=== PATIENT | male | born 2000 | race Caucasian/White ===

== ENCOUNTER 2022-08-06 10:44 | Inpatient (IN) ==
[2022-08-06] MEDS ORDERED: SODIUM CHLORIDE 0.9% 1000ML 1,000 ML IV ONE (11:16)
[2022-08-06] MEDS ORDERED: KETOROLAC TROMETHAMINE 15 MG/ML VIAL IV ONE ×2 (11:16→16:03)
--- NOTE | 2022-08-06 11:19 | Emergency Department Note ---
Impression & Plan Abdominal pain, Pancreatitis, Vomiting ED Provider Note NAME: IRMA MORGAN AGE: 21 SEX: M : 2000 ARRIVES VIA: Walk-In INFORMANT: Patient ED PROVIDER(S): Alec Gardner DO CHIEF COMPLAINT: RUQ abdominal pain HPI: Patient is a 21-year-old male who presents ER for right upper quadrant abdominal pain. This has been present over the past 2 months. Generally worse after eating. Over the past 2 weeks it has significantly worsened. He was seen here and evaluated and had a CT performed last week which was unremarkable. He denies any headache or change in vision. No chest pain but admits to pain in his right upper quadrant/right lower chest with breathing. Has some nausea but no vomiting. No dysuria, urgency, or frequency. No other exacerbating or remitting factors. He was seen and evaluated by [facility] and referred in today. Pain is sharp stabbing constant and currently 7 out of 10. ROS: See above HPI for pertinent positives & negatives. A total of 10 systems reviewed and were otherwise negative. PAST MEDICAL HISTORY:See Below PAST SURGICAL HISTORY:See Below FAMILY HISTORY:See Below SOCIAL HISTORY:See Below HOME MEDICATIONS:See Below ALLERGIES:See Below VITALS:See Below PHYSICAL EXAMINATION: GENERAL: Sitting up in bed, alert, well appearing, well nourished, no distress, non-toxic EYE EXAM: normal conjunctiva. OROPHARYNX: no exudate, no erythema, lips, buccal mucosa, and tongue normal and mucous membranes are moist NECK: supple, no nuchal rigidity, no adenopathy, non-tender LUNGS: Clear to auscultation. Normal chest wall mechanics HEART: no murmurs, S1 normal and S2 normal ABDOMEN: abdomen soft, TTP in RUQ, normo-active bowel sounds, no masses, no rebound or guarding. BACK: Back is symmetrical on inspection and there is no deformity, no midline tenderness, no CVA tenderness. SKIN: no rashes and no bruising UPPER EXTREMITIES: upper extremities are grossly normal. LOWER EXTREMITIES: No pitting edema. NEURO EXAM: Normal sensorium, cranial nerves II-XII grossly intact, normal speech, no gross weakness of arms, no gross weakness of legs. MEDICAL DECISION MAKING: Patient is a 21-year-old male who presents ER for abdominal pain. IV was established blood work is obtained. Labs show no significant leukocytosis or anemia. D-dimer was negative. BMP along with LFTs bilirubin and lipase was remarkable for T bili of 3.6 and a lipase of 450. UA was clean. Ultrasound showed an unremarkable gallbladder. Patient was given IV fluids, Toradol and morphine. Updated bedside. Discussed with the hospitalist Dr. Colunga for further evaluation. Chest x-ray was clean. Triage Nursing notes reviewed. Limited review of prior medical records performed Vital Signs: reviewed and remarkable for tachy Differential diagnosis: Differential diagnoses includes but is not limited to gastritis, peptic ulcer disease, GERD, gallbladder disease, pancreatitis, small bowel obstruction, acute coronary syndrome, pericarditis, ischemic bowel, irritable bowel disease, irritable bowel syndrome, appendicitis, diverticulitis, malignancy, hernia, urinary tract infection, torsion, perforation, trauma, infectious. ER treatment provided: See below Diagnostics interpreted by me: ECG: Sinus rhythm rate 83 Left axis Intermittent PVCs QTC 458 Cardiac Monitoring: An order was placed for continuous cardiac monitoring. The monitor shows a rate of 75 with sinus rhythm. Laboratory studies: As stated above and show below. Imaging studies: Ultrasound as described above Consultation(s): Discussed with Dr. Davide burns for further evaluation Procedures: none Critical Care: None Past Med/Surg History Medical History No pertinent past medical history Social History Smoking Status: Never smoker Tobacco Type: E-cigarettes / Vaping Preferred Language: Macedonian Feels Safe at Home: Yes Allergies Allergies Allergy/AdvReac Type Severity Reaction Status Date / Time No Known Allergies Allergy Verified 08/06/22 14:30 Home Meds Home Medications Medication Instructions Recorded Confirmed [id number] 6.25 2 cap PO DIRECTED PRN COLD 08/04/22 08/06/22 mg-15 mg-325 mg capsule (Vicks SYMPTOMS/SLEEP NyQuil Cold/Flu Liquicap) calcium carbonate 1,000 1 tab PO TID 08/06/22 08/06/22 mg-magnesium hydroxide 200 mg chewable tablet (Rolaids Antacid Ultra Strength) Results & Data (ED) Vital Signs Vital Signs - 24 hr 08/06/22 11:04 08/06/22 11:34 08/06/22 11:35 Temperature 36.8 C Temperature Source Temporal Artery Scan Oral Pulse Rate 102 H Pulse Rate [Right Finger] Respiratory Rate 18 Blood Pressure 135/87 Blood Pressure [Right Arm] Blood Pressure Mean 103 Blood Pressure Mean [Right Arm] Pulse Oximetry 100 Oxygen Delivery Method Room Air Room Air Sepsis Recent Fever Within 48 Hours No Sepsis New/Unexplained Change in Mental Status No Sepsis Action Taken by Nursing No Action Required 08/06/22 13:29 Temperature Temperature Source Pulse Rate Pulse Rate [Right Finger] 71 Respiratory Rate 16 Blood Pressure Blood Pressure [Right Arm] 123/68 Blood Pressure Mean Blood Pressure Mean [Right Arm] 86 Pulse Oximetry 98 Oxygen Delivery Method Room Air Sepsis Recent Fever Within 48 Hours Sepsis New/Unexplained Change in Mental Status Sepsis Action Taken by Nursing Laboratory Data Result diagrams: 08/06/22 11:20 08/06/22 11:20 Lab Results 08/06/22 08/06/22 08/06/22 Range/Units 11:15 11:20 11:20 WBC 5.60 (4.8-10.8) K/ul RBC 5.71 (4.63-6.08) M/uL Hgb 16.6 (14.0-18.0) g/dl Hct 47.5 (40.1-51.0) % MCV 83.2 (80.0-100.0) fL MCH 29.1 (25.0-34.0) pg MCHC 34.9 (32.0-36.0) g/dL RDW Std Deviation 36.2 L (36.4-46.3) fL RDW Coeff of Gabriella 12.0 (11.5-14.5) % Plt Count 216 (130-400) K/uL MPV 10.3 (9.4-12.4) fL Immature Gran % (Auto) 0.2 % Neut % (Auto) 68.0 % Lymph % (Auto) 21.3 % [place] % (Auto) 9.1 % Eos % (Auto) 0.7 % Baso % (Auto) 0.7 % Neut # (Auto) 3.81 (1.4-6.5) K/uL Lymph # (Auto) 1.19 L (1.2-3.4) K/uL [place] # (Auto) 0.51 (0.24-0.82) K/uL Eos # (Auto) 0.04 (0-0.50) K/uL Baso # (Auto) 0.04 (0-0.2) K/uL Immature Gran # (Auto) 0.01 (0.00-0.02) K/uL D-Dimer < 190 (0-500) ug/L FEU Sodium (136-145) mmol/L Potassium (3.5-5.1) mmol/L Chloride (98-107) mmol/L Carbon Dioxide (21-32) mmol/L Anion Gap (3-11) BUN (6-23) mg/dl Creatinine (0.6-1.4) mg/dl Est Cr Clr Drug Dosing ml/min Est GFR ( Amer) ml/min Est GFR (Non-Af Amer) ml/min BUN/Creatinine Ratio (10-20) Glucose (70-99(Fasting)) mg/dl Lactate (0.4-2.0) mmol/L Calcium (8.5-10.1) mg/dl Total Bilirubin (0.2-1.0) mg/dl AST (13-39) U/L ALT (7-52) U/L Alkaline Phosphatase (34-104) U/L Total Protein (6.0-8.3) gm/dl Albumin (3.4-5.0) gm/dl Globulin (2.5-4.0) gm/dl Albumin/Globulin Ratio (0.9-2) Amylase (25-115) U/L Lipase (11-82) U/L Urine Color Yellow Urine Appearance Clear (Clear) Urine pH 6.5 (4.5-7.5) Ur Specific [place] 1.012 (1.000-1.030) Urine Protein Negative (Negative) Urine Glucose (UA) Negative (Negative) Urine Ketones 1+ H (Negative) Urine Blood Negative (Negative) Urine Nitrite Negative (Negative) Urine Bilirubin Negative (Negative) Urine Urobilinogen Negative (Negative) Ur Leukocyte Esterase Negative (Negative) 08/06/22 08/06/22 08/06/22 Range/Units 11:20 16:12 16:12 WBC (4.8-10.8) K/ul RBC (4.63-6.08) M/uL Hgb (14.0-18.0) g/dl Hct (40.1-51.0) % MCV (80.0-100.0) fL MCH (25.0-34.0) pg MCHC (32.0-36.0) g/dL RDW Std Deviation (36.4-46.3) fL RDW Coeff of Gabriella (11.5-14.5) % Plt Count (130-400) K/uL MPV (9.4-12.4) fL Immature Gran % (Auto) % Neut % (Auto) % Lymph % (Auto) % [place] % (Auto) % Eos % (Auto) % Baso % (Auto) % Neut # (Auto) (1.4-6.5) K/uL Lymph # (Auto) (1.2-3.4) K/uL [place] # (Auto) (0.24-0.82) K/uL Eos # (Auto) (0-0.50) K/uL Baso # (Auto) (0-0.2) K/uL Immature Gran # (Auto) (0.00-0.02) K/uL D-Dimer (0-500) ug/L FEU Sodium 138 (136-145) mmol/L Potassium 3.8 (3.5-5.1) mmol/L Chloride 100 (98-107) mmol/L Carbon Dioxide 26 (21-32) mmol/L Anion Gap 12 H (3-11) BUN 11 (6-23) mg/dl Creatinine 0.85 (0.6-1.4) mg/dl Est Cr Clr Drug Dosing 96.5 ml/min Est GFR ( Amer) 142.3 ml/min Est GFR (Non-Af Amer) 122.8 ml/min BUN/Creatinine Ratio 12.9 (10-20) Glucose 82 (70-99(Fasting)) mg/dl Lactate 0.8 (0.4-2.0) mmol/L Calcium 10.6 H (8.5-10.1) mg/dl Total Bilirubin 3.6 H (0.2-1.0) mg/dl AST 15 (13-39) U/L ALT 11 (7-52) U/L Alkaline Phosphatase 52 (34-104) U/L Total Protein 8.1 (6.0-8.3) gm/dl Albumin 5.3 H (3.4-5.0) gm/dl Globulin 2.8 (2.5-4.0) gm/dl Albumin/Globulin Ratio 1.9 (0.9-2) Amylase 112 (25-115) U/L Lipase 456 H (11-82) U/L Urine Color Urine Appearance (Clear) Urine pH (4.5-7.5) Ur Specific [place] (1.000-1.030) Urine Protein (Negative) Urine Glucose (UA) (Negative) Urine Ketones (Negative) Urine Blood (Negative) Urine Nitrite (Negative) Urine Bilirubin (Negative) Urine Urobilinogen (Negative) Ur Leukocyte Esterase (Negative) Administered Medications Discontinued Medications Sodium Chloride (Nss 1000ml) 1,000 mls @ 999 mls/hr IV .Q1H1M ONE Stop: 08/06/22 12:16 Last Infusion: 08/06/22 12:27 Dose: 0 mls/hr Documented By: Admin: 08/06/22 11:25 Dose: 999 mls/hr Documented By: ARINA Ketorolac Tromethamine (Ketorolac Tromethamine 15 Mg/Ml Vial) 15 mg IV NOW ONE Stop: 08/06/22 11:17 Last Admin: 08/06/22 11:38 Dose: 15 mg Documented By: ARINA Ketorolac Tromethamine (Ketorolac Tromethamine 15 Mg/Ml Vial) 15 mg IV NOW ONE Stop: 08/06/22 16:04 Last Admin: 08/06/22 16:34 Dose: Not Given Documented By: BRANDON Ketorolac Tromethamine (Ketorolac Tromethamine 15 Mg/Ml Vial) Confirm Administered Dose 15 mg .ROUTE .STK-MED ONE Stop: 08/06/22 16:06 Last Admin: 08/06/22 16:11 Dose: 15 mg Documented By: BRANDON Morphine Sulfate (Morphine Sulfate 4 Mg/Ml 1 Ml Carp\Vial) 4 mg IV NOW STA Stop: 08/06/22 13:36 Last Admin: 08/06/22 13:45 Dose: 4 mg Documented By: BRANDON Ondansetron HCl (Ondansetron Inj 2 Mg/Ml 2 Ml Vial) Confirm Administered Dose 4 mg .ROUTE .STK-MED ONE Stop: 08/06/22 13:43 Last Admin: 08/06/22 13:45 Dose: 4 mg Documented By: BRANDON Imaging Data Radiologist's Impression: Gallbladder Ultrasound 08/06/22 11:16 ABDOMINAL ULTRASOUND, RIGHT UPPER QUADRANT HISTORY: Right upper quadrant abdominal pain.. COMPARISON: Abdomen and pelvis CT 08/05/2022. FINDINGS: Pancreas: The pancreas demonstrates a normal echotexture. Liver: Unremarkable. Gallbladder: No gallbladder wall thickening. No gallstones. CBD: 2 mm. Right kidney: No hydronephrosis. IMPRESSION: No significant abnormality identified within the right upper quadrant. ACT 112: Negative or not required by law. Electronically signed by: Kris Mattson M.D. 08/06/2022 12:22 PM Chest X-Ray 08/06/22 12:36 XR chest 1V portable HISTORY: Right lower chest pain. COMPARISON: Abdomen and pelvis CT 08/05/2022. FINDINGS: The lungs are clear. Cardiac silhouette is normal in size. No pleural effusions. No pneumothorax. IMPRESSION: No acute process. ACT 112: Negative or not required by law. Electronically signed by: Kris Mattson M.D. 08/06/2022 1:06 PM Discharge Plan Visit Data Chief Complaint: Abdominal Pain Stated Complaint: ABDOMINAL PAIN ED Provider: Alec Gardner Discharge Problem: Abdominal pain, Pancreatitis, Vomiting Forms Stand Alone Forms: [employer] Prescriptions Prescriptions: No Action [place] NyQuil Cold/Flu Liquicap 6.25-15-325 mg Capsule 2 cap PO DIRECTED PRN (Reason: COLD SYMPTOMS/SLEEP) Rolaids Antacid Ultra Strength 1,000-200 mg Tablet,Chewable 1 tab PO TID Referrals Referrals: [facility] [Primary Care Provider] -
[2022-08-06 12:15] LABS: Appearance Urine Clear (Clear); Bilirubin Urine Negative (Negative); Blood Urine Negative (Negative); Color Urine Yellow; Glucose Urine UA Negative (Negative); Ketones Urine 1+ (Negative); Leukocyte Esterase Urine Negative (Negative); Nitrite Urine Negative (Negative); Protein Urine Negative (Negative); Specific Gravity Urine 1.012 (1.000-1.030); Urobilinogen Urine Negative (Negative); pH Urine 6.5 (4.5-7.5)
--- NOTE | 2022-08-06 12:23 | Ultrasound Report ---
ABDOMINAL ULTRASOUND, RIGHT UPPER QUADRANT HISTORY: Right upper quadrant abdominal pain.. COMPARISON: Abdomen and pelvis CT 08/05/2022. FINDINGS: Pancreas: The pancreas demonstrates a normal echotexture. Liver: Unremarkable. Gallbladder: No gallbladder wall thickening. No gallstones. CBD: 2 mm. Right kidney: No hydronephrosis. IMPRESSION: No significant abnormality identified within the right upper quadrant. ACT 112: Negative or not required by law. Electronically signed by: Kris Mattson M.D. 08/06/2022 12:22 PM
[2022-08-06 12:34] LABS: Basophils # (auto) 0.04 K/uL (0-0.2); Basophils % (auto) 0.7 %; Eosinophils # (auto) 0.04 K/uL (0-0.50); Eosinophils % (auto) 0.7 %; Hematocrit (blood only) 47.5 % (40.1-51.0); Hemoglobin 16.6 g/dl (14.0-18.0); Immature Granulocytes # (auto) 0.01 K/uL (0.00-0.02); Immature Granulocytes % (auto) 0.2 %; Lymphocytes # (auto) 1.19 K/uL (1.2-3.4); Lymphocytes % (auto) 21.3 %; Mean Corpuscular Hemoglobin 29.1 pg (25.0-34.0); Mean Corpuscular Hgb Conc 34.9 g/dL (32.0-36.0); Mean Corpuscular Volume 83.2 fL (80.0-100.0); Mean Platelet Volume 10.3 fL (9.4-12.4); Monocytes # (auto) 0.51 K/uL (0.24-0.82); Monocytes % (auto) 9.1 %; Neutrophils # (auto) 3.81 K/uL (1.4-6.5); Platelet Count 216 K/uL (130-400); RDW Standard Deviation 36.2 fL (36.4-46.3); Red Blood Count 5.71 M/uL (4.63-6.08)
[2022-08-06 12:52] LABS: D Dimer < 190 ug/L FEU (0-500)
[2022-08-06 13:02] LABS: Albumin Globulin Ratio 1.9 (0.9-2); Albumin Level 5.3 gm/dl (3.4-5.0); BUN Creatinine Ratio 12.9 (10-20); Bilirubin,Total 3.6 mg/dl (0.2-1.0); Calcium 10.6 mg/dl (8.5-10.1); Creatinine Clr Calc Pharmacy 96.5 ml/min; Est GFR (African American) 142.3 ml/min; Est GFR (Non-African American) 122.8 ml/min; Globulin 2.8 gm/dl (2.5-4.0); Potassium 3.8 mmol/L (3.5-5.1); Total Protein 8.1 gm/dl (6.0-8.3)
--- NOTE | 2022-08-06 13:07 | XRay Report ---
XR chest 1V portable HISTORY: Right lower chest pain. COMPARISON: Abdomen and pelvis CT 08/05/2022. FINDINGS: The lungs are clear. Cardiac silhouette is normal in size. No pleural effusions. No pneumot horax. IMPRESSION: No acute process. ACT 112: Negative or not required by law. Electronically signed by: Kris Mattson M.D. 08/06/2022 1:06 PM
[2022-08-06] MEDS ORDERED: MoRPHine SULFATE 4 MG/ML 1 ML CARP\\VIAL IV STA (13:35)
[2022-08-06] MEDS ORDERED: ONDANSETRON INJ 2 MG/ML 2 ML VIAL ONE (13:42)
[2022-08-06] MEDS ORDERED: KETOROLAC TROMETHAMINE 15 MG/ML VIAL ONE (16:05)
--- NOTE | 2022-08-06 16:14 | History & Physical Report ---
Date of Service August 06, 2022 Assessment & Plan (1) Abdominal pain: Plan: -Admit to med/surge -Patient is currently afebrile, hemodynamically stable, and stable on room air -At this time the patient's symptoms and lab findings are most suggestive of acute pancreatitis, pain is in the upper abdomen with radiation to the back with nausea, Lipase is elevated greater than 3x the upper limit of normal, but no radiographic findings at this time -No other findings on imaging to identify another acute process -Will order amylase, lactate, triglyceride level -Will add on stool panel and Giardia PCR to rule out infectious source -Keep NPO for now, will continue IV hydration with lactated ringer's at 125 mL/hr x 24 hours for now, adjust as needed tomorrow -BID pantoprazole for now -Toradol at 10 mg IV q4h prn mild-mod pain, morphine 2 mg IV q6h prn severe pain -AM CBC and CMP Plan The patient was discussed with Dr. 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 He states that his abdominal pain initially started when he moved to [place] this past June. He has had some chronic abdominal discomfort in the past, especially with eating, but he states that the pain has been significantly worse recently. He states that the pain is mainly located in the RUQ/epigastric region, he describes it as a constant, sharp/stabbing pain which is a 5/10 at rest but a 10/10 after eating, with movement or at night. He notes that the pain also goes to his back at times. He initially tried to adjust his diet when the pain became worse about 1 week ago. He was eating mostly chicken, homemade smoothies and salads, but this did not improve his symptoms. He has been nauseous but has not vomited. He has been having approximately 2-3 bowel movements per day over the past month, however, over the past two days he has been having watery diarrhea and has noted mucus in his stool. He does not believe that he has had any well water to drink recently, does not have a history of previously diagnosed abdominal issues, has never seen a GI provider, and does not believe that his family has a history of high triglycerides. Prior to the past month of worsening pain he would causally drink alcohol, he curre ntly uses a Vape pen, and denies recreation drug use. He has not had any recent fevers or chills, chest pain, SOB, dysuria, hematuria, hematemesis, or swelling. The patient was seen on 08/04 in the [facility] ED for the same symptoms. He says over the past week the pain and nausea have been so bad that he has had poor oral intake and has not been able to sleep over the past 48 hours. At that time his lipase was 38, CT of the abd/pelvis with IV contrast was negative for acute or inflammatory findings but did show bilateral Bochdalek hernias. Today, the patient is afebrile, hemodynamically stable, and stable on room air. Labs are remarkable for a white count WNL, D-Dimer WNL, AG of 12 with normal bicarb, calcium of 10.6, total bili of 3.6, normal AST, ALT, and Alk phose, and lipase of 456. Chest xray was negative for acute findings. RUQ US was also negative for acute findings. In the Ed the patient was given 1L NSS, 15 mg IV toradol, and 4 mg IV morphine. Allergies Allergy/AdvReac Type Severity Reaction Status Date / Time No Known Allergies Allergy Verified 08/06/22 14:30 Home Medications Medication Instructions Recorded Confirmed Type cprsmrzvor-PT-nvpyewajupsyj 6.25 2 cap PO DIRECTED PRN COLD 08/04/22 08/06/22 History mg-15 mg-325 mg capsule (Vicks SYMPTOMS/SLEEP NyQuil Cold/Flu Liquicap) calcium carbonate 1,000 1 tab PO TID 08/06/22 08/06/22 History mg-magnesium hydroxide 200 mg chewable tablet (Rolaids Antacid Ultra Strength) Past Med/Surg History Medical History No pertinent past medical history Social History Smoking Status: Current every day smoker Tobacco Type: E-cigarettes / Vaping Second Hand Exposure: No; Do You Dip or Chew Tobacco: No; Tobacco Cessation Education Requested by Patient: No Hx Alcohol Use: Yes Alcohol type: beer Hx Substance Use: No Preferred Language: Syriac Communication Ability: Effective Mold Technician Required: No Beliefs That Will Affect Care: None Current Living Situation: Alone and Family Other Information That Helps Us Care for You: No Feels Safe at Home: Yes Safety Concerns: Feels Safe At This Time Review of Systems Review of Systems: Denies current fever, chills, headache, changes in vision, hearing, taste, and smell, chest pain, SOB, cough, hematemesis, melena, dysuria, hematuria, and recent falls. All systems have been reviewed and are otherwise negative. Physical Exam Physical Exam: Physical Exam: General: In mild distress, stated age, well-nourished, good hygiene HEENT: Normocephalic, atraumatic, no scleral icterus, pupils around round, symmetrical, and reactive to light, moist mucus membranes, trachea midline, no thyromegaly Chest/Pulm: No respiratory distress, symmetrical chest expansion, clear breath sounds throughout Cardiac: RRR, no murmurs noted Abdomen: Negative for ascites and bruising, hypoactive bowel sounds, soft, extremely tender to palpation in the upper abdominal meyers. Musculoskeletal: Symmetrical and without signs of acute trauma, upper and lower extremities with full ROM, no atrophy, spasticity, or flaccidity Extremities: Radial, dorsalis pedis, and posterior tibial pulses are intact and symmetrical, no edema noted in the BL LE's Skin: Warm, dry, no rashes , lesions, or scars noted Neuro: Alert and oriented to person, place, month, year, and president, no focal defects, CN II-XII tested and intact, finger to nose test negative, no tremors noted Psych: No acute distress, calm and cooperative during the exam Results & Data Results & Data ([facility]) Vital Signs (Past 12 Hours) Vital Signs Temp Pulse Pulse Resp BP BP Pulse Ox 08/06/22 13:29 71 16 123/68 98 08/06/22 11:34 08/06/22 11:04 36.8 C 102 H 18 135/87 100 O2 Del Method 08/06/22 13:29 Room Air 08/06/22 11:34 Room Air 08/06/22 11:04 Room Air Laboratory Results Abnormal lab results 08/06/22 08/06/22 08/06/22 Range/Units 11:15 11:20 11:20 RDW Std Deviation 36.2 L (36.4-46.3) fL Lymph # (Auto) 1.19 L (1.2-3.4) K/uL Anion Gap 12 H (3-11) Calcium 10.6 H (8.5-10.1) mg/dl Total Bilirubin 3.6 H (0.2-1.0) mg/dl Albumin 5.3 H (3.4-5.0) gm/dl Lipase 456 H (11-82) U/L Urine Ketones 1+ H (Negative) Diagnostic Findings Gallbladder Ultrasound 08/06/22 11:16 ABDOMINAL ULTRASOUND, RIGHT UPPER QUADRANT HISTORY: Right upper quadrant abdominal pain.. COMPARISON: Abdomen and pelvis CT 08/05/2022. FINDINGS: Pancreas: The pancreas demonstrates a normal echotexture. Liver: Unremarkable. Gallbladder: No gallbladder wall thickening. No gallstones. CBD: 2 mm. Right kidney: No hydronephrosis. IMPRESSION: No significant abnormality identified within the right upper quadrant. ACT 112: Negative or not required by law. Electronically signed by: Kris Mattson M.D. 08/06/2022 12:22 PM Chest X-Ray 08/06/22 12:36 XR chest 1V portable HISTORY: Right lower chest pain. COMPARISON: Abdomen and pelvis CT 08/05/2022. FINDINGS: The lungs are clear. Cardiac silhouette is normal in size. No pleural effusions. No pneumothorax. IMPRESSION: No acute process. ACT 112: Negative or not required by law. Electronically signed by: Kris Mattson M.D. 08/06/2022 1:06 PM ECG Additional Comments: No ECG available at the time of admission, will order one now Code Status & VTE Plan Code Status Full code VTE Prophylaxis Plan VTE Prophylaxis will be ordered: Yes Supervising Physician Co-Signing Physician Notes Patient seen and examined at bedside. During face to face encounter obtained a history and physical examination. I reviewed above note and agree with it. Plan of care discussed with patient and APC Peno. Patient admitted for abdominal pain. Possible pancreatitis, may consider HIDA scan, or MRCP. will assess clinical improvement overnight. Defer further management to morning team. PG Care Time/CCT Total # of Minutes Spent Total Time Spent with Patient: Total time spent is greater than 50% in coordination of care (as documented) at patient's floor/unit and/or counseling patient: [place] [address] Initial Inpt Care Lvl 2 Patient Type New Medical Decision Making Moderate Complexity Diagnoses Abdominal pain R10.9
[2022-08-06] MEDS ORDERED: KETOROLAC TROMETHAMINE 15 MG/ML VIAL IV PRN (17:26)
[2022-08-06] MEDS: PANTOprazole 40 MG in SYRINGE 0 ML IV SCH (17:48)
[2022-08-06] MEDS: MoRPHine SULFATE 2 MG/ML CARP IV PRN (17:50)
[2022-08-06] MEDS: LACTATED RINGER'S 1,000 ML IV SCH (17:55)
[2022-08-07] MEDS: LACTATED RINGER'S 1,000 ML IV SCH ×2 (01:35→10:10)
[2022-08-07 08:01] LABS: Hemoglobin 14.3 g/dl (14.0-18.0); Mean Corpuscular Hemoglobin 29.1 pg (25.0-34.0); Mean Corpuscular Volume 85.4 fL (80.0-100.0); Mean Platelet Volume 10.1 fL (9.4-12.4); Platelet Count 172 K/uL (130-400); RDW Coefficient of Variation 12.1 % (11.5-14.5); RDW Standard Deviation 37.8 fL (36.4-46.3); Red Blood Count 4.92 M/uL (4.63-6.08); White Blood Count 6.81 K/ul (4.8-10.8)
--- NOTE | 2022-08-07 08:07 | Hospitalist Progress Note ---
Date of Service August 07, 2022 Assessment & Plan (1) Abdominal pain: Plan: History of intermittent epigastric/right upper quadrant pain since college however pain is much worse and has been almost debilitating over the last week to 2 weeks. Pain is worse with eating and at nighttime. Patient is not taking NSAIDs in excess. No hemodynamic instability. On admission noted to have a lipase of 456. TBili 3.5, with direct bili of 0.5. CT abdomen and pelvis without evidence of acute intra-abdominal pathology. Right upper quadrant ultrasound performed given that patient has several family members with gallbladder disease; no abnormal findings. Lipid panel pending to eval for hypertriglyceridemia. Stool studies pending, including H. pylori. Celiac testing ordered as patient reports worsening of pain with carbohydrates. Continue IV fluids, advance diet as tolerated. Will treat as pancreatitis vs. gastritis/PUD and see if patient's symptoms improve. Follow-up with [facility] outpatient, for consideration of endoscopy if symptoms do not improve with PPI BID and Carafate q6h. Morphine 2mg IV q6h as needed for pain. (2) Pancreatitis: Plan: see above (3) Anxiety: Plan: Patient with a self-reported history of anxiety that has been going on since college. Patient has not sought counseling or medication for this in the past. I do anticipate that some amount of stress/anxiety is culpable in his abdominal pain, either as a symptom of anxiety or gastritis secondary to stress. Will get patient established with PCP in the area to discuss anxiety and consider medication for such, as well as recommended patient reach out to [facility] for counseling. Admission and Anticipated Discharge Date Admission Date: August 06, 2022 Subjective Patient has had some continued pain overnight. He states that the pain is worse with eating, at nighttime, and with standing. Pain is associated with nausea at times. Parents in room as well. He has had pain in his right upper abdomen off and on since late teen years, however over the last week the pain has been debilitating, affecting his ability to eat, do his work, study. He has not seen a Electrical Troubleshooter in the past. He reports increase in anxiety and being the most anxious he has been in his life right now. He does not drink alcohol. No family history of cholesterol issues. He has not been on any medications in the past for this pain, nor has he been on medication for anxiety. He does not see a counselor. Review of Systems Constitutional: no fever and no chills Respiratory: no cough and no dyspnea Cardiovascular: no chest pain and no palpitations Gastrointestinal: + abdominal pain and + nausea; no vomiting Physical Exam Constitutional: WD/WN, vitals as above Respiratory: normal respiratory effort, lungs clear to auscultation Cardiovascular: RRR, no murmur, no edema Gastrointestinal (Abdomen): normal bowel sounds abdomen soft, mildly diffusely tender with moderate pain to palpation of RUQ no hepatosplenomegaly Skin: no rashes, warm and dry Psychiatric: A+Ox3, euthymic affect Results & Data Results & Data ([facility]) Vital Signs (Past 12 Hours) Vital Signs Temp Pulse Resp BP Pulse Ox O2 Del Method 08/07/22 07:20 Room Air 08/07/22 07:15 68 16 97/62 L 100 Room Air 08/06/22 22:12 36.9 C 93 H 16 107/64 93 Room Air PG Care Time/CCT Total # of Minutes Spent Total Time Spent with Patient: Total time spent is greater than 50% in coordination of care (as documented) at patient's floor/unit and/or counseling patient: Coding Level of Care Code 68770 Subseq Hosp Care Lvl 3 Diagnoses Abdominal pain R10.9 Pancreatitis K85.90 Anxiety F41.9
[2022-08-07] MEDS: MoRPHine SULFATE 2 MG/ML CARP IV PRN ×2 (08:12→21:53)
[2022-08-07] MEDS: PANTOprazole 40 MG in SYRINGE 0 ML IV SCH ×2 (08:12→19:34)
[2022-08-07 08:36] LABS: Alanine Aminotransferase 11 U/L (7-52); Albumin Globulin Ratio 2.6 (0.9-2); Albumin Level 4.4 gm/dl (3.4-5.0); Alkaline Phosphatase 43 U/L (34-104); Anion Gap 11 (3-11); Aspartate Aminotransferase 17 U/L (13-39); BUN Creatinine Ratio 31.1 (10-20); Bilirubin,Total 3.4 mg/dl (0.2-1.0); Blood Urea Nitrogen 23 mg/dl (6-23); Calcium 9.4 mg/dl (8.5-10.1); Carbon Dioxide 22 mmol/L (21-32); Chloride 105 mmol/L (98-107); Est GFR (African American) > 150.0 ml/min; Globulin 1.7 gm/dl (2.5-4.0); Glucose 60 mg/dl (70-99(Fasting)); Magnesium 2.1 mg/dl (1.7-2.4); Potassium 4.5 mmol/L (3.5-5.1); Sodium 138 mmol/L (136-145); Total Protein 6.1 gm/dl (6.0-8.3)
[2022-08-07 12:29] LABS: Bilirubin Direct 0.5 mg/dl (0-0.2); Chol HDL Ratio 2.3 (0-5); INR 1.2 (0.9-1.1); Prothrombin Time 12.2 Seconds (9.0-12.0)
--- NOTE | 2022-08-07 13:38 | Electrocardiogram Report ---
Test Reason : Blood Pressure : / mmHG Vent. Rate : 063 BPM Atrial Rate : 063 BPM P-R Int : 158 ms QRS Dur : 074 ms QT Int : 428 ms P-R-T Axes : 082 073 082 degrees QTc Int : 437 ms Sinus rhythm with marked sinus arrhythmia Otherwise normal ECG No previous ECGs available Confirmed by John Lezama ([id number]) on 08/07/2022 1:37:55 PM Referred By: [facility] Confirmed By:Tyrell Lezama
--- NOTE | 2022-08-07 13:40 | Electrocardiogram Report ---
Test Reason : Blood Pressure : / mmHG Vent. Rate : 083 BPM Atrial Rate : 083 BPM P-R Int : 144 ms QRS Dur : 092 ms QT Int : 390 ms P-R-T Axes : 070 -41 044 degrees QTc Int : 458 ms Sinus rhythm with occasional Premature ventricular complexes Left axis deviation Abnormal ECG When compared with ECG of 06-AUG-2022 16:38, (unconfirmed) Premature ventricular complexes are now Present QRS axis Shifted left Nonspecific T wave abnormality no longer evident in Lateral leads Confirmed by John Lezama ([id number]) on 08/07/2022 1:40:13 PM Referred By: [facility] Confirmed By:Tyrell Lezama
[2022-08-07 19:19] LABS: Adenovirus F 40/41 PCR Not Detected (NotDetected); Astrovirus PCR Not Detected (NotDetected); Campylobacter PCR Not Detected (NotDetected); Clostridium diff Toxin A/B PCR Not Detected (NotDetected); Cryptosporidium PCR Not Detected (NotDetected); Cyclospora cayetanensis PCR Not Detected (NotDetected); Entamoeba histolytica PCR Not Detected (NotDetected); Enteroaggregative E.coli(EAEC) Not Detected (NotDetected); Enteropathogenic E.coli (EPEC) Not Detected (NotDetected); Enterotoxigenic E.coli (ETEC) Not Detected (NotDetected); Giardia lamblia PCR Not Detected (NotDetected); Norovirus GI/GII PCR Not Detected (NotDetected); Plesiomonas shigelloides PCR Not Detected (NotDetected); Rotavirus A PCR Not Detected (NotDetected); Salmonella PCR Not Detected (NotDetected); Sapovirus PCR Not Detected (NotDetected); Shiga-like Toxin E.coli (STEC) Not Detected (NotDetected); Shigella/Enteroinvasive E.coli Not Detected (NotDetected); Vibrio cholerae PCR Not Detected (NotDetected); Vibrio species PCR Not Detected (NotDetected); Yersinia enterocolitica PCR Not Detected (NotDetected)
[2022-08-07] MEDS: SUCRALFATE 1 GM/10 ML UDC PO SCH (19:34)
[2022-08-08 07:57] LABS: Hematocrit (blood only) 38.1 % (40.1-51.0); Hemoglobin 13.3 g/dl (14.0-18.0); Mean Corpuscular Hemoglobin 29.4 pg (25.0-34.0); Mean Corpuscular Hgb Conc 34.9 g/dL (32.0-36.0); Mean Corpuscular Volume 84.3 fL (80.0-100.0); Mean Platelet Volume 10.2 fL (9.4-12.4); Platelet Count 155 K/uL (130-400); RDW Standard Deviation 36.6 fL (36.4-46.3); Red Blood Count 4.52 M/uL (4.63-6.08); White Blood Count 5.12 K/ul (4.8-10.8)
[2022-08-08 08:36] LABS: Albumin Globulin Ratio 2.4 (0.9-2); Albumin Level 3.9 gm/dl (3.4-5.0); BUN Creatinine Ratio 16.7 (10-20); Bilirubin,Total 2.8 mg/dl (0.2-1.0); Calcium 8.8 mg/dl (8.5-10.1); Creatinine Clr Calc Pharmacy 112.9 ml/min; Est GFR (African American) 147.5 ml/min; Est GFR (Non-African American) 127.2 ml/min; Globulin 1.6 gm/dl (2.5-4.0); Magnesium 1.8 mg/dl (1.7-2.4); Potassium 3.8 mmol/L (3.5-5.1); Total Protein 5.5 gm/dl (6.0-8.3)
[2022-08-08] MEDS: SUCRALFATE 1 GM/10 ML UDC PO SCH ×4 (09:08→21:59)
[2022-08-08] MEDS: PANTOprazole 40 MG in SYRINGE 0 ML IV SCH ×2 (09:09→21:59)
--- NOTE | 2022-08-08 09:11 | Hospitalist Progress Note ---
Date of Service August 08, 2022 Assessment & Plan (1) Abdominal pain: Plan: 21-year-old male past medical history significant for undifferentiated abdominal pain, anxiety admitted for worsening of the abdominal pain with need for pain control. History of intermittent epigastric/right upper quadrant pain since college however pain is much worse and has been almost debilitating over the last week to 2 weeks. Pain is worse with eating and at nighttime. Patient is not taking NSAIDs in excess. No hemodynamic instability. On admission noted to have a lipase of 456. TBili 3.5, with direct bili of 0.5. CT abdomen and pelvis without evidence of acute intra-abdominal pathology. Right upper quadrant ultrasound performed given that patient has several family members with gallbladder disease; no abnormal findings. Lipid panel without evidence of hypertriglyceridemia. Stool studies pending, including H. pylori. Celiac testing ordered as patient reports worsening of pain with carbohydrates. Continue IV fluids, advance diet as tolerated. Will continue to treat as pa ncreatitis vs. gastritis/PUD and see if patient's symptoms improve. Follow-up with gastroenterology outpatient, for consideration of endoscopy if symptoms do not improve with PPI BID and Carafate q6h. Morphine 2mg IV q6h as needed for pain. (2) Pancreatitis: Plan: see above (3) Anxiety: Plan: Patient with a self-reported history of anxiety that has been going on since college. Patient has not sought counseling or medication for this in the past. I do anticipate that some amount of stress/anxiety is culpable in his abdominal pain, either as a symptom of anxiety or gastritis secondary to stress. Will get patient established with PCP in the area to discuss anxiety and consider medication for such, as well as recommended patient reach out to [facility] for counseling. Admission and Anticipated Discharge Date Admission Date: August 06, 2022 Subjective No acute events overnight. Did use as needed opiate pain medications for pain relief. Patient does report that his pain today is somewhat better than yesterday, however still with pretty poor appetite due to pain with eating. He does not endorse any other symptoms. In particular, his pain in his abdomen is much better at rest, but still as uncomfortable as yesterday with palpation. Review of Systems Constitutional: no fever and no chills Respiratory: no cough and no dyspnea Cardiovascular: no chest pain and no palpitations Gastrointestinal: + abdominal pain; no nausea and no vomiting Physical Exam Constitutional: WD/WN, vitals as above Respiratory: normal respiratory effort, lungs clear to auscultation Cardiovascular: RRR, no murmur, no edema Gastrointestinal (Abdomen): normal bowel sounds abdomen soft, moderately diffusely tender no hepatosplenomegaly Skin: no rashes, warm and dry Psychiatric: A+Ox3, euthymic affect Results & Data Results & Data ([facility]) Vital Signs (Past 12 Hours) Vital Signs Temp Pulse Resp BP Pulse Ox O2 Del Method 08/08/22 07:38 36.7 C 55 L 14 97/57 L 98 Room Air 08/07/22 22:08 37 C 64 16 105/67 100 Room Air PG Care Time/CCT Total # of Minutes Spent Total Time Spent with Patient: Total time spent is greater than 50% in coordination of care (as documented) at patient's floor/unit and/or counseling patient: Coding Level of Care Code 10108 Subseq Hosp Care Lvl 3 Diagnoses Abdominal pain R10.9 Pancreatitis K85.90 Anxiety F41.9
[2022-08-08] MEDS: MoRPHine SULFATE 2 MG/ML CARP IV PRN ×2 (12:47→18:48)
[2022-08-08] MEDS ORDERED: HYDROmorphone INJ 0.5 MG/0.5 ML SYR IV STA (23:00)
[2022-08-08] MEDS: LACTATED RINGER'S 1,000 ML IV SCH (23:12)
[2022-08-09 07:32] LABS: Hemoglobin 12.5 g/dl (14.0-18.0); Mean Corpuscular Hemoglobin 29.3 pg (25.0-34.0); Mean Corpuscular Hgb Conc 34.7 g/dL (32.0-36.0); Mean Corpuscular Volume 84.5 fL (80.0-100.0); Mean Platelet Volume 10.5 fL (9.4-12.4); Platelet Count 145 K/uL (130-400); RDW Coefficient of Variation 12.1 % (11.5-14.5); RDW Standard Deviation 36.5 fL (36.4-46.3); Red Blood Count 4.26 M/uL (4.63-6.08); White Blood Count 4.17 K/ul (4.8-10.8)
[2022-08-09 08:08] LABS: Albumin Globulin Ratio 1.9 (0.9-2); Albumin Level 3.7 gm/dl (3.4-5.0); BUN Creatinine Ratio 11.4 (10-20); Bilirubin,Total 2.4 mg/dl (0.2-1.0); Creatinine Clr Calc Pharmacy 111.5 ml/min; Est GFR (African American) 146.7 ml/min; Est GFR (Non-African American) 126.6 ml/min; Magnesium 1.8 mg/dl (1.7-2.4); Potassium 3.5 mmol/L (3.5-5.1); Total Protein 5.7 gm/dl (6.0-8.3)
--- NOTE | 2022-08-09 08:25 | Hospitalist Progress Note ---
Date of Service August 09, 2022 Assessment & Plan (1) Abdominal pain: Plan: 21-year-old male past medical history significant for undifferentiated abdominal pain, anxiety admitted for worsening of the abdominal pain with need for pain control. History of intermittent epigastric/right upper quadrant pain since college however pain is much worse and has been almost debilitating over the last week to 2 weeks. Pain is worse with eating and at nighttime. Patient is not taking NSAIDs in excess, and denies regular alcohol use. No hemodynamic instability. On admission noted to have a lipase of 456. TBili 3.5, normal direct bili. CT abdomen and pelvis without evidence of acute intra-abdominal pathology. Right upper quadrant ultrasound performed; no abnormal findings. Lipid panel without evidence of hypertriglyceridemia. Stool pathogen panel negative. Giardia pending. IgA/TTG IgA still pending. Urine tox screen negative for marijuana. Clear liquid diet. Continue PPI BID and Carafate q6h. Dilaudid 0.5 mg every 4 hours as needed for moderate to severe pain. Gastroenterology consulted and appreciate recommendations: MRCP now, with likely EGD/EUS later this week. Can also consider HIDA scan to evaluate for biliary dyskinesia. Pain management consulted for consideration of right upper quadrant trigger point injection, for possible nerve entrapment/abdominal wall pain. (2) Pancreatitis: Plan: see above (3) Anxiety: Plan: Patient with a self-reported history of anxiety that has been going on since college. Patient has not sought counseling or medication for this in the past. I do anticipate that some amount of stress/anxiety is culpable in his abdominal pain, either as a symptom of anxiety or gastritis secondary to stress. Will get patient established with PCP in the area to discuss anxiety and consider medication for such, as well as recommended patient reach out to [facility] for counseling. Admission and Anticipated Discharge Date Admission Date: August 06, 2022 Subjective Overnight was in a lot of distress due to abdominal pain and anxiety. Dr. Evans was called to evaluate patient at bedside. She made patient n.p.o., ordered IV fluids, and gave him a one-time dose of Dilaudid. This morning he reports that his pain is the same as it was yesterday, and that at night it is much worse for reasons that he does not understand. He was trying to avoid the IV pain medications somewhat yesterday due to hoping that he would need them which would mean that he could possibly go home, but he is struggling and has asked for increase in pain medications at this time. He denies chest pain or trouble breathing, vomiting. He has not had a bowel movement in a bit as he reports that bearing down causes him a significant increase in his abdominal pain. Review of Systems Review of Systems: All systems reviewed & are unremarkable except as noted in Subjective Constitutional: no fever and no chills Respiratory: no cough and no dyspnea Cardiovascular: no chest pain and no palpitations Gastrointestinal: + abdominal pain; no nausea and no vomiting Physical Exam Constitutional: WD/WN, vitals as above Respiratory: normal respiratory effort, lungs clear to auscultation Cardiovascular: RRR, no murmur, no edema Gastrointestinal (Abdomen): normal bowel sounds abdomen soft, mildly diffusely tender with moderate pain in right upper quadrant with palpation and with clenching of abdominal muscles no hepatosplenomegaly Skin: no rashes, warm and dry Psychiatric: A+Ox3, euthymic affect Results & Data Results & Data ([facility]) Vital Signs (Past 12 Hours) Vital Signs Temp Pulse Resp BP Pulse Ox O2 Del Method 08/09/22 07:35 36.9 C 58 L 16 98/58 L 99 Room Air 08/08/22 21:00 Room Air 08/08/22 22:45 36.8 C 66 16 96/59 L 96 Room Air PG Care Time/CCT Total # of Minutes Spent Total Time Spent with Patient: Total time spent is greater than 50% in coordination of care (as documented) at patient's floor/unit and/or counseling patient: Coding Level of Care Code 88101 Subseq Hosp Care Lvl 3 Diagnoses Abdominal pain R10.9 Pancreatitis K85.90 Anxiety F41.9
[2022-08-09] MEDS: LACTATED RINGER'S 1,000 ML IV SCH (08:30)
[2022-08-09] MEDS: PANTOprazole 40 MG in SYRINGE 0 ML IV SCH ×2 (08:31→22:01)
[2022-08-09] MEDS: SUCRALFATE 1 GM/10 ML UDC PO SCH ×4 (08:31→22:02)
[2022-08-09] MEDS ORDERED: MoRPHine SULFATE 2 MG/ML CARP IV PRN (10:41)
[2022-08-09] MEDS: ACETAMINOPHEN IV SCH ×2 (12:10→18:11)
[2022-08-09] MEDS: [UNRECOGNIZED DRUG - OTHER] IV SCH ×2 (12:10→18:11)
[2022-08-09 13:38] LABS: Amphetamines+Metham, Urine Neg (Neg); Barbiturates, Urine Neg (Neg); Benzodiazepine, Urine Neg (Neg); Cocaine, Urine Neg (Neg); MDMA (Ecstacy), Urine Neg (Neg); Methadone, Urine Neg (Neg); Opiate, Urine Pos (Neg); Phencyclidine, Urine Neg (Neg)
--- NOTE | 2022-08-09 14:06 | Consultation ---
Date of Consultation August 09, 2022 History of Present Illness Attending Physician: Chiara Santos DO History of Present Illness 21 yo M seen for abdominal pain. Pt reports longstanding mild intermittent GI symptoms, characterized by intermittent mild RUQ pain lasting a day occurring once a week, associated with loose stools, since he was a child. 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 For the past 6 weeks, he has experienced increased RUQ pain. Pain is notably worse in the past 2 weeks. Pain is constant but waxes and wanes. Generally severe. Worse at night when he lies down; worse with food and preventing PO intake, associated with nausea but no vomiting; worse with movement and flexion of his abdominal muscles. No weight loss. He reported constipation over the weekend that prompted a Miralax purge with no change in his symptoms. Pain began when pt moved from his parents'home in [place] to [place] for grad school. He has had some anxiety with this transition, and the workload with grad school has been difficult. Denies MJ, alcohol, illicit drugs. No NSAIDs. On ER present, lipase > 3 x ULN with nl transaminases and AP, trigs, and calcium. Bili is 2-3, with normal direct bili. CT and ultrasound have been normal. On my review of CT, pancreas is normal, no vascular abnl on imaging. He is on PPI, carafate and Morphine. He is NPO. PE: Comfortable, thin, NAD. Pale, appears tired and mildly anxious. HEENT:pale, mildly dry mucous membranes, clear CV: RRR Resp: CTA Abd: Decr BS, no bruit. Non distended, scaphoid. He has tenderness and voluntary guarding with light palpation throughout RUQ. He has positive Carnett's sign in RUQ. He has mild discomofrt in RUQ with movement. Extrem: no edema A/P: RUQ pain Increased lipase Increased total bili with normal direct bili - Suspect nerve entrapment/abdominal wall pain. DDX includes occult pancreatic disease/SOD, functional pain. - Suspect Gilbert's as cause of increased bili. RECS: Diet per primary service. Analgesia per primary service, but would consider dilaudid over morphine given increased lipase. Please consult pain management to eval for trigger point injection to RUQ. MRCP to eval increased lipase. EGD/EUS later this week. Can consider [facility] HIDA eval biliary dyskinesia/SOD if symptoms persistent. U tox screen for MJ. Consider treatment with SSRI to help with pain control/anxiety. Will defer to primary service. Allergies Allergy/AdvReac Type Severity Reaction Status Date / Time No Known Allergies Allergy Verified 08/06/22 14:30 Home Medications Medication Instructions Recorded Confirmed Type [id number] 6.25 2 cap PO DIRECTED PRN COLD 08/04/22 08/06/22 History mg-15 mg-325 mg capsule (Vicks SYMPTOMS/SLEEP NyQuil Cold/Flu Liquicap) calcium carbonate 1,000 1 tab PO TID 08/06/22 08/06/22 History mg-magnesium hydroxide 200 mg chewable tablet (Rolaids Antacid Ultra Strength) Patient History Medical History No pertinent past medical history Social History Smoking Status: Current every day smoker Tobacco Type: E-cigarettes / Vaping Second Hand Exposure: No; Do You Dip or Chew Tobacco: No; Tobacco Cessation Education Requested by Patient: No Hx Alcohol Use: Yes Alcohol type: beer Hx Substance Use: No Preferred Language: Beninese Communication Ability: Effective Tank Tester Required: No Beliefs That Will Affect Care: None Current Living Situation: Alone and Family Other Information That Helps Us Care for You: No Feels Safe at Home: No Is there a partner from a previous relationship who is making you feel unsafe now?: No Any Concerns about Your Family Situation: No Would You Like to Speak to Someone About Your Situation: No Safety Concerns: Feels Safe At This Time Assistive Devices: None Results & Data ([facility]) Vital Signs (Past 12 Hours) Vital Signs Temp Pulse Resp BP Pulse Ox O2 Del Method 08/09/22 08:47 Room Air 08/09/22 07:35 36.9 C 58 L 16 98/58 L 99 Room Air
[2022-08-09] MEDS ORDERED: HYDROmorphone INJ 1 MG/ML SYRINGE IV PRN (14:20)
[2022-08-09 16:19] LABS: Anion Gap 6.2 (3-11)
--- NOTE | 2022-08-09 19:33 | Magnetic Resonance Report ---
MR MRCP HISTORY: 21 years-old Male increased lipase, upper abdominal pain. Eval PD. Acute right upper quadr ant abdominal pain COMPARISON: CT abdomen pelvis 08/05/2022, ultrasound 08/06/2022 TECHNIQUE: MRCP was obtained without the use of IV contrast. FINDINGS: Or chest unremarkable with trace pleural effusions. Unremarkable spleen, pancreas, gallbladder and ad renal glands. Pancreatic duct is normal in caliber. Unremarkable liver. The study is degraded by resp iratory motion artifact. Kidneys are within normal limits. No bowel obstruction or lymphadenopathy. F ree pelvic fluid is likely physiologic. Unremarkable soft tissues. No cholelithiasis or choledocholit hiasis. Common bile duct measures 3 mm. No intrahepatic or extrahepatic biliary ductal dilation. IMPRESSION: 1. Mildly motion degraded exam. 2. Unremarkable gallbladder. 3. No biliary or pancreatic ductal dilation or choledocholithiasis. ACT 112: Negative or not required by law. The above report was generated using voice recognition software. It may contain grammatical, syntax o r spelling errors. Electronically signed by: Juan Antonio Torres M.D. 08/09/2022 7:31 PM
[2022-08-09] MEDS: HYDROmorphone INJ 1 MG/ML SYRINGE IV PRN (19:50)
[2022-08-10] MEDS: ACETAMINOPHEN IV SCH ×3 (04:06→18:25)
[2022-08-10] MEDS: [UNRECOGNIZED DRUG - OTHER] IV SCH ×3 (04:06→18:25)
[2022-08-10] MEDS: PANTOprazole 40 MG in SYRINGE 0 ML IV SCH ×2 (08:35→20:19)
[2022-08-10] MEDS: SUCRALFATE 1 GM/10 ML UDC PO SCH ×4 (08:35→20:19)
--- NOTE | 2022-08-10 10:10 | Gastroenterology Progress Note ---
Date of Service August 10, 2022 Assessment & Plan (1) Abdominal pain: Plan: Discussed that US, MRCP w/o cause of pain, that this likely represents functional pain, though as no change in pain w BMs, doesn't fit the SHEA criteria for IBS. Differentials considered include passage of gallbladder sludge, pancreatitis, ulcer disease, gastroparesis, IBS. Lipase was elevated - so need to r/o pancreatitis w EUS as well as by US, and MRCP Plan Will go forward with EGD/EUS tomorrow. Celiac Serology. If EGD/EUS (-), consider gastric emptying study. NPO tonight for procedure tomorrow but when no contraindicate by procedure protocol, would advance diet. Would avoid narcotics. Will try dicyclomine 10mg ac/hs. Will verify that pain management consult was placed as mother talked about w Dr. Glass. Admission and Anticipated Discharge Date Admission Date: August 06, 2022 Supervising Physician Co-Signing Physician Notes I performed a history and physical examination of the patient today, including specifically on physical exam - soft abdomen. I have discussed the patient's management with the advanced practitioner. Please refer to the nurse practitioner's note for the documented findings and plan of care. EUS tomorrow. Subjective 21 yr old male admitted w abd pain on 08/06/22. Lipase 400's, CT w/o evidence of pancreatic abnormalities. Patient tells me that he had similar pain in the right upper quadrant when he was age 16. This is much more severe and is occurring persistently. He describes this as cramping, twisting, pressure, acid feeling. This is much worse immediately after eating or drinking anything. Reports feeling full easily. No change in bowel habits and pain is not affected by passing a bowel movement. No constipation or diarrhea. He did have a dark bowel movement once last week,no priscila blood in BMs. No Pepto-Bismol use. No N/V. Parents at the bedside. They traveled here from [place]. Patient's parents are very frustrated that he has abdominal pain that is keeping him from being able to continue with his classes. 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 When I entered the room, he was on the phone with his emergency department physician, deferring classes for this semester due to this pain. Parents are very concerned and request an inpatient workup instead of waiting for testing to be done as an outpatient. No family history of pancreatitis. No family history of celiac disease. There is a history of IBS in the patient's father's family. Denies any recreational drug use. Regarding diet, parents say that he eats fatty foods and that he uses artificial sweeteners, but pt denies drinking soda, diet teas or any alcohol. No marijuana use. Mom asks if he could have gallbladder sludge, SOD or as suggested by Dr. Glass acute cutaneous pain syndrome. Per mom, she was told that pain management would see him to w/u for that. Review of Systems Review of Systems: ROS: Gen: Denies weakness, fevers, weight loss Eyes: No eye redness, or pain, no recent vision changes Resp: No SOB, no cough Cardio: No palpitations/irregular beats, no chest pain GI: As per HPI, otherwise (-) : Denies pain on urination Skin: No jaundice, itching or new rashes a total of 12 systems reviewed, all others (-) Physical Exam Constitutional: WD/WN, vitals as above Pt laying in bed. Affect dull. Provides good eye contact, answers all questions w attention to detail. Results & Data ([facility]) Vital Signs (Past 12 Hours) Vital Signs Temp Pulse Resp BP Pulse Ox O2 Del Method 08/10/22 07:43 36.4 C L 52 L 14 91/55 L 99 Room Air Laboratory Results Yesterday's labs: WBC 4.17, Hb 12.5, Hct 36, Plts 145, Na 141, K 3.5, Cl 103, CO2 27, Bun 9 Cr 0.79, glucose 89. T BIli 2.4, AST 13, ALT 19, Alk Phos 41. Tox screen marijuana (-). Lipase on 08/06 456 Diagnostic Findings US and MRCP on 08/06 w normal GB and bile ducts.
--- NOTE | 2022-08-10 14:26 | Pain Management Consultation ---
Date of Consultation August 10, 2022 Assessment & Plan (1) Abdominal pain: (2) Anxiety: (3) Abdominal wall pain in right upper quadrant: Plan 1. Patient's pain appears to be myofascial in nature and was offered abdominal wall trigger point injections at today's visit into the right upper quadrant. The patient was agreeable. Refer to procedure note below. 2. Will defer to GI for further diagnostic work-up. 3. Further treatment options will be determined pending response to the abdominal wall trigger point injections completed at today's visit 4. We discussed the potential contribution of his anxiety disorder and abdominal pain complaints. Consider involvement with behavioral health. Thank you for allowing us to participate in the care of Mr. Moraes. TRIGGER POINT INJECTION Diagnosis: Myofascial pain with spasm Side/Level injected: Right upper quadrant x4 Surgeon: Laci BONILLA Prior to starting, the Patients diagnosis and the procedure were reviewed with the patient in detail. Possible risks and complications including infection, bleeding, damage to surrounding structures and increased pain were discussed. Alternative therapies were also reviewed. Patients questions were answered and they agreed to proceed. Informed consent was obtained. Allergies and medication list was reviewed. The patient was brought to the procedure room and placed in prone position. Immediately prior to starting the procedure, a ``time out was conducted with the staff and the patient where the patient was identified, proposed procedure was verified, consent was reviewed and the proper site for the planned procedure was identified. Patient was not given any intravenous sedation and constant verbal contact was maintained throughout the procedure. On examination, no signs of skin breakdown or infection were noted at the injection site. The site was cleansed with ChloraPrep. Palpation over the site produced patients typical pain. Using an 1.5 inch 25-gauge needle, the right upper quadrant abdominal wall musculature were injected in similar fashion after negative aspiration for blood with 1.5-2 mL of a combination of 7 mL of 0.5% ropivacaine containing 40 mg of Kenalog and 30 mg of ketorolac without complication. Needle was withdrawn and hemostasis noted. Band-Aid was applied where needed. Patient tolerated the procedure uneventfully without complications. History of Present Illness Reason for Consultation: Right upper quadrant abdominal pain Requesting Physician: Eric Glass MD Attending Physician: Heath Paz MD History of Present Illness Mr. Moraes is a 21-year-old white male who was admitted due to intractable right upper quadrant abdominal pain. 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 Patient reports a 5-year history of intermittent right upper quadrant abdominal pain which is increased in frequency and severity over the past few months. His pain is typically in the right upper quadrant described as a fairly constant ache with episodic sharp and stabbing pains which range between a 5-10/10. He is unable to associate it with dietary intake or bowel movements. He denies radiation of the pain or any evidence of a thoracic radicular pattern. He reports loose stools but he denies difficulties with watery diarrhea, hematochezia or chronic constipation. He denies any difficulties with nausea or vomiting. He reports that his weight has been relatively stable over the past few years. He does have some underlying anxiety and is not actively treated. He does report some increase situational stress with moving to [place] for graduate studies. Testing upon this admission has revealed elevated lipase but no evidence of pancreatic abnormalities. He is awaiting further testing per GI service at this time. Patient has no further constitutional complaints. Parents were present during most of today's visit who recently traveled here from [place]. Plan of care discussed with Dr. Nieto. Pain Assessment Full Body Front + Back: 1. Right upper quadrant-localized abdominal pain Pain scale - at its best (0-10): 5 Pain scale - at its worst (0-10): 10 Allergies Allergy/AdvReac Type Severity Reaction Status Date / Time No Known Allergies Allergy Verified 08/06/22 14:30 Home Medications Medication Instructions Recorded Confirmed Type [id number] 6.25 2 cap PO DIRECTED PRN COLD 08/04/22 08/06/22 History mg-15 mg-325 mg capsule (Vicks SYMPTOMS/SLEEP NyQuil Cold/Flu Liquicap) calcium carbonate 1,000 1 tab PO TID 08/06/22 08/06/22 History mg-magnesium hydroxide 200 mg chewable tablet (Rolaids Antacid Ultra Strength) Pain History Pain Intensity Pain scale - at its best (0-10): 5 Pain scale - at its worst (0-10): 10 Patient History Medical History (Updated 08/10/22 @ 14:22 by Laci Farias PA-C) Abdominal wall pain in right upper quadrant No pertinent past medical history Social History Smoking Status: Current every day smoker Tobacco Type: E-cigarettes / Vaping Second Hand Exposure: No; Do You Dip or Chew Tobacco: No; Tobacco Cessation Education Requested by Patient: No Hx Alcohol Use: Yes Alcohol type: beer Hx Substance Use: No Preferred Language: Senegalese Communication Ability: Effective Manager Of [employer] Required: No Beliefs That Will Affect Care: None Current Living Situation: Alone and Family Other Information That Helps Us Care for You: No Feels Safe at Home: No Is there a partner from a previous relationship who is making you feel unsafe now?: No Any Concerns about Your Family Situation: No Would You Like to Speak to Someone About Your Situation: No Safety Concerns: Feels Safe At This Time Assistive Devices: None Physical Exam Physical Exam: General: Patient lying quietly in exam room in no acute distress accompanied by his father initially and then mother later during the visit. Speech and thought process appropriate. Patient appears anxious th roughout the visit. Cognition intact. Head: Normocephalic and atraumatic. ENT: No evidence of nasal or oral mucosal lesions. Mucous membranes are moist. Eyes: Pupils equal round reactive to light. Neck: Supple without adenopathy and full range of motion. Chest: Nontender to palpation of the costosternal junction. Abdomen: Soft and nondistended. No organomegaly. Bowel sounds active. Patient is tender to direct palpation right upper quadrant without rebound or guarding. Increased pain with straight leg raising bilaterally right greater than left and further increased with resisted straight leg raising and any resisted sit up maneuvering--positive Carnett's sign. Back/spine: Normal lumbar lordosis. Nontender over the midline. No focal facet or SI joint tenderness. Lower extremities: Strength testing 5/5 and equal. Sensation intact without deficit. Neurologic: Cranial nerves grossly intact. Ambulatory function not witnessed.
--- NOTE | 2022-08-10 17:00 | Hospitalist Progress Note ---
Date of Service August 10, 2022 Assessment & Plan (1) Abdominal pain: Plan: History of intermittent epigastric/right upper quadrant pain since college however pain is much worse and has been almost debilitating over the last week to 2 weeks. Pain is worse with eating and at nighttime. Patient is not taking NSAIDs in excess, and denies regular alcohol use. No hemodynamic instability. On admission noted to have a lipase of 456. TBili 3.5, normal direct bili. CT abdomen and pelvis without evidence of acute intra-abdominal pathology. Right upper quadrant ultrasound performed; no abnormal findings. MRCP without abnormality on 08/09. Lipid panel without evidence of hypertriglyceridemia. Stool pathogen panel negative. Giardia pending. IgA/TTG IgA still pending. Urine tox screen negative for marijuana. Clear liquid diet. -> Advance as able. Continue PPI BID and Carafate q6h. Dilaudid 0.5 mg every 4 hours as needed for moderate to severe pain. Gastroenterology consulted and appreciate recommendations: EGD/EUS tomorrow. Can also consider HIDA scan to evaluate for biliary dyskinesia. Pain management consulted for consideration of right upper quadrant trigger point injection, for possible nerve entrapment/abdominal wall pain. (2) Pancreatitis: Plan: See above (3) Anxiety: Plan: Patient with a self-reported history of anxiety that has been going on since college. Patient has not sought counseling or medication for this in the past. I do anticipate that some amount of stress/anxiety is culpable in his abdominal pain, either as a symptom of anxiety or gastritis secondary to stress. Will get patient established with PCP in the area to discuss anxiety and consider medication for such, as well as recommended patient reach out to [facility] for counseling. Admission and Anticipated Discharge Date Admission Date: August 06, 2022 Subjective Reports some improvement in pain, but not that much. Able to take some PO, but reports only eating about 50% of his meal. Reports no fevers/chills, chest pain, shortness of breath. Physical Exam Constitutional: WD/WN, vitals as above Eyes: EOM intact bilaterally; no conjunctival abnormality ENMT: external ear and nose normal, oropharynx normal Neck: trachea midline, no thyromegaly normal visual inspection Respiratory: normal respiratory effort, lungs clear to auscultation no respiratory distress Cardiovascular: RRR, no murmur, no edema Gastrointestinal (Abdomen): Inspection/Auscultation: abdomen normal to inspection; abdomen not distended Musculoskeletal: no cyanosis or clubbing, extremities motor strength 5/5 Skin: no rashes, warm and dry Neurologic: moves all extremities and awake Psychiatric: Orientation: alert, oriented to person and cooperative Results & Data Results & Data ([facility]) Vital Signs (Past 12 Hours) Vital Signs Temp Pulse Resp BP Pulse Ox O2 Del Method 08/10/22 15:05 37.7 C H 59 L 14 99/61 L 99 Room Air 08/10/22 07:43 36.4 C L 52 L 14 91/55 L 99 Room Air PG Care Time/CCT Total # of Minutes Spent Total Time Spent with Patient: Total time spent is greater than 50% in coordination of care (as documented) at patient's floor/unit and/or counseling patient: Coding Level of Care Code 13215 Subseq Hosp Care Lvl 2 Diagnoses Abdominal pain R10.9 Pancreatitis K85.90 Anxiety F41.9
[2022-08-11 00:49] LABS: IgA Serum 227 mg/dL (47-310); Tis Trans IgA <1.0 U/mL
[2022-08-11] MEDS: [UNRECOGNIZED DRUG - OTHER] IV SCH ×3 (03:39→19:19)
[2022-08-11] MEDS: ACETAMINOPHEN IV SCH ×3 (03:39→19:19)
[2022-08-11 07:06] LABS: Albumin Level 4.3 gm/dl (3.4-5.0); Bilirubin Direct 0.2 mg/dl (0-0.2); Bilirubin,Total 2.1 mg/dl (0.2-1.0); Immunoglobulin A 209.7 mg/dl (70-400); Total Protein 6.5 gm/dl (6.0-8.3)
[2022-08-11] MEDS: PANTOprazole 40 MG in SYRINGE 0 ML IV SCH ×2 (09:00→20:43)
--- NOTE | 2022-08-11 09:15 | Pain Management Progress Note ---
Date of Service August 11, 2022 Assessment & Plan (1) Abdominal wall pain in right upper quadrant: Plan Patient is reporting about 25% pain relief from trigger point injections at this time. He and his parents state that he was able to get around the hospital room more easily yesterday. I did explain to the patient that the trigger point injections may need up to 2 weeks for full effect and he is understanding. If he does report 50% or greater relief from abdominal wall trigger point injections then it may be repeated every 90 days if needed. Thank you for the consultation. Please contact with any questions or concerns. Admission and Anticipated Discharge Date Admission Date: August 06, 2022 Faisal Pinedo is a 21 year old male that received abdominal wall trigger point injections yesterday for acute abdominal pain. He states that there is about 25% pain relief since yesterday. Family states that he was able to walk around the room more easily yesterday and seemed more comfortable. He states that his pain went from 7/10 down to 5/10. Pain does remain in the right upper abdomen. No flank pain. No fevers, chills, nausea, vomiting, diarrhea, constipation. Case discussed with Dr. Nieto Physical Exam Physical Exam: GENERAL: This is a 21 year old male that is accompanied by family. In no acute distress. HEAD/FACE: Normocephalic and atraumatic. EYES: No drainage or conjunctival injection. ENT: Nose without bleeding or discharge. Oral mucosa moist. NECK: Full ROM without apparent pain. No swelling or masses noted. RESPIRATORY: Patient with unlabored breathing. No signs of respiratory distress. CHEST/AXILLA: Chest movement symmetrical. No deformities noted. CARDIOVASCULAR: Patients heart rate is regular, with pulse rate as documented. No edema noted. ABDOMEN/GI: No distension. There is tenderness of the right upper abdomen. No rebound tenderness or peritoneal signs. BACK: Moves without difficulty SKIN: [place], warm and dry. No rash noted. MS/EXTREMITY: No swelling, no deformities. Moving extremities appropriately. NEURO: Alert and appears oriented. Speech is fluent. Cranial Nerves are grossly intact. PSYCH: Alert, pleasant, affect is calm
--- NOTE | 2022-08-11 13:54 | Hospitalist Progress Note ---
Date of Service August 11, 2022 Assessment & Plan (1) Abdominal pain: Plan: History of intermittent epigastric/right upper quadrant pain since college however pain is much worse and has been almost debilitating over the last week to 2 weeks. Pain is worse with eating and at nighttime. (Possible) Myofascial abdominal pain. Patient is not taking NSAIDs in excess, and denies regular alcohol use. No hemodynamic instability. On admission noted to have a lipase of 456. TBili 3.5, normal direct bili. CT abdomen and pelvis without evidence of acute intra-abdominal pathology. Right upper quadrant ultrasound performed; no abnormal findings. MRCP without abnormality on 08/09. Lipid panel without evidence of hypertriglyceridemia. Stool pathogen panel negative. Giardia pending. IgA/TTG IgA still pending. Urine tox screen negative for marijuana. Clear liquid diet. -> Advance as able. Continue PPI BID and Carafate q6h. Gastroenterology consulted and appreciate recommendations: EGD/EUS today. Can also consider HIDA scan to evaluate for biliary dyskinesia. Pain management consulted -> Did trigger point injections on 08/10 with substantial improvement. - Stop opiates. Will trial Bentyl for cramping abdominal pain. (2) Pancreatitis: Plan: See above (3) Anxiety: Plan: Patient with a self-reported history of anxiety that has been going on since college. Patient has not sought counseling or medication for this in the past. I do anticipate that some amount of stress/anxiety is culpable in his abdominal pain, either as a symptom of anxiety or gastritis secondary to stress. Will get patient established with PCP in the area to discuss anxiety and consider medication for such, as well as recommended patient reach out to [facility] for counseling. Admission and Anticipated Discharge Date Admission Date: August 06, 2022 Subjective Doing some better today. Will attempt to eat after EGD. Reports no fevers/chills, chest pain, shortness of breath, nausea, or vomiting. Physical Exam Constitutional: WD/WN, vitals as above Eyes: EOM intact bilaterally; no conjunctival abnormality ENMT: external ear and nose normal, oropharynx normal Neck: trachea midline, no thyromegaly normal visual inspection Respiratory: normal respiratory effort, lungs clear to auscultation no respiratory distress Cardiovascular: RRR, no murmur, no edema Gastrointestinal (Abdomen): Inspection/Auscultation: abdomen normal to inspection; abdomen not distended Musculoskeletal: no cyanosis or clubbing, extremities motor strength 5/5 Skin: no rashes, warm and dry Neurologic: moves all extremities and awake Psychiatric: Orientation: alert, oriented to person and cooperative Results & Data Results & Data ([facility]) Vital Signs (Past 12 Hours) Vital Signs Temp Pulse Resp BP Pulse Ox O2 Del Method 08/11/22 07:39 36.9 C 54 L 18 94/51 L 95 Room Air PG Care Time/CCT Total # of Minutes Spent Total Time Spent with Patient: Total time spent is greater than 50% in coordination of care (as documented) at patient's floor/unit and/or counseling patient: Coding Level of Care Code 19736 Subseq Hosp Care Lvl 2 Diagnoses Abdominal pain R10.9 Pancreatitis K85.90 Anxiety F41.9
[2022-08-11] MEDS ORDERED: ePHEDrine sulfate 50 MG/ML AMP IV PRN (14:31)
[2022-08-11] MEDS ORDERED: ONDANSETRON INJ 2 MG/ML 2 ML VIAL IV PRN (14:31)
[2022-08-11] MEDS ORDERED: fentaNYL citrate 100 MCG/2 ML VIAL IV PRN (14:31)
[2022-08-11] MEDS ORDERED: ATROPINE SULFATE 0.1 MG/ML 10ML SYR IV PRN (14:31)
--- NOTE | 2022-08-11 14:34 | History & Physical Bridge Note ---
Date of Service August 11, 2022 History & Physical Bridge Note I have examined the patient, reviewed the History & Physical and in the interval since the performance of the History & Physical I have noted the following changes of clinical significance: no changes noted EUS Patient was explained in detail regarding risks, benefits, limitations and alternatives of the above endoscopic procedure. Risks of intravenous sedation used for procedure were also explained. Risks include, but not limited to perforation, bleeding, infection, respiratory distress, cardiac arrest and . Patient is also aware about the possibility of missed lesion. Patient's questions were answered. The patient verbalized understanding the information and agreed to undergo the procedure.
--- NOTE | 2022-08-11 14:35 | Anesthesiology Consultation ---
Date of Service August 11, 2022 Assessment & Plan ASA ASA2 Proposed Anesthesia Anesthesia Type: General Risk / Benefits Reviewed With: PT / POA / Parent / Guardian, Accepts Plan and Informed Consent Obtained History Surgery Operation Date: 08/11/22 07:00 Proposed Procedures p Endoscopic Ultrasonography Upper - Armando Beasley MD s Esophagogastroduodenoscopy - Armando Beasley MD Height/Weight Height: 5 ft 10 in Weight: 54.2 kg Allergies Allergy/AdvReac Type Severity Reaction Status Date / Time No Known Allergies Allergy Verified 08/06/22 14:30 Medications Home Medications Medication Instructions Recorded Confirmed Last Taken [id number] 6.25 2 cap PO DIRECTED PRN COLD 08/04/22 08/06/22 Unknown mg-15 mg-325 mg capsule (Vicks SYMPTOMS/SLEEP NyQuil Cold/Flu Liquicap) calcium carbonate 1,000 1 tab PO TID 08/06/22 08/06/22 Unknown mg-magnesium hydroxide 200 mg chewable tablet (Rolaids Antacid Ultra Strength) Active Medications Generic Name Dose Route Start Last Admin Trade Name Freq PRN Reason Stop Dose Admin Hydromorphone HCl 0.5 mg 08/09/22 15:32 08/09/22 19:50 Hydromorphone Inj 1 Mg/Ml Syringe IV 08/23/22 14:19 0.5 mg Q4H PRN Administration moderate to severe pain Pantoprazole Sodium 40 mg/ 10 mls @ 5 mls/min 08/06/22 16:30 08/10/22 20:19 Syringe IV 09/05/22 16:29 5 mls/min BID IMTIAZ Administration Acetaminophen 1,000 mg/ EMPTY 100 mls @ 400 mls/hr 08/09/22 11:00 08/11/22 04:00 BAG IV 09/08/22 10:59 Infused Q8H IMTIAZ Infusion Sucralfate 1 gm 08/07/22 21:00 08/10/22 20:19 Sucralfate 1 Gm/10 Ml Udc PO 09/06/22 20:59 1 gm QID IMTIAZ Administration NPO Date Last Intake of Fluids: 08/10/22 Time Last Intake of Fluids: 23:59 Date Last Intake of Solids: 08/10/22 Time Last Intake of Solids: 23:59 Past Medical History Medical History Abdominal wall pain in right upper quadrant No pertinent past medical history Exercise / Class Metabolic Activity II 4-5 Yardwork/Stairs/Walk up hill Past Anesthesia History No Hx of Anesthesia Complications and No Family Hx of Anesthesia Complications History of PONV No Hx of PONV and No Hx of Motion Sickness Social History Smoking Status: Current every day smoker tobacco type: e-cigarettes Do You Dip or Chew Tobacco: No Hx Alcohol Use: Yes Alcohol type: beer alcohol intake frequency: holidays/special occasions only Hx Substance Use: No substance use type: does not use Review of Systems denies fever/cough/ colds/ chest pain/ SOB/ ELAINE denies ELAINE Physical Exam Vital Signs Last Vital Signs Temp 37.1 C 08/11/22 13:50 Pulse 61 08/11/22 13:50 Resp 18 08/11/22 13:50 BP 110/65 08/11/22 13:50 Pulse Ox 99 08/11/22 13:50 O2 Del Method 08/11/22 13:50 ENMT Mouth: no TMJ abnormality and no dentition abnormality Thyromental Distance: > or= 3.5 Finger Breadths Mallampati Class: II Neck neck extension not limited Respiratory normal respiratory effort; no respiratory distress Auscultation: lungs clear to auscultation bilaterally Cardiovascular Rate/Rhythm: regular rate and regular rhythm Neurologic moves all extremities Psychiatric Orientation: alert and oriented x 3 Testing Laboratory Results 08/09/22 06:47 08/09/22 06:47 PT 12.2 Seconds (9.0-12.0) H 08/07/22 11:51 INR 1.2 (0.9-1.1) H 08/07/22 11:51 Urine Color Yellow 08/06/22 11:15 Urine Appearance Clear (Clear) 08/06/22 11:15 Urine pH 6.5 (4.5-7.5) 08/06/22 11:15 Ur Specific [place] 1.012 (1.000-1.030) 08/06/22 11:15 Urine Protein Negative (Negative) 08/06/22 11:15 Urine Glucose (UA) Negative (Negative) 08/06/22 11:15 Urine Ketones 1+ (Negative) H 08/06/22 11:15 Urine Nitrite Negative (Negative) 08/06/22 11:15 Ur Leukocyte Esterase Negative (Negative) 08/06/22 11:15
[2022-08-11] MEDS ORDERED: fentaNYL citrate 100 MCG/2 ML VIAL ONE (14:49)
[2022-08-11] MEDS: SUCRALFATE 1 GM/10 ML UDC PO SCH ×3 (15:06→20:43)
[2022-08-11] MEDS ORDERED: PROPOFOL IV EMULSION 10 MG/ML 20 ML VIAL IV ONE (15:15)
[2022-08-11] MEDS ORDERED: LIDOCAINE 2% MPF LOCAL 5 ML VIAL INFIL ONE (15:15)
--- NOTE | 2022-08-11 15:27 | Operative Report ---
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 Any exceptions are noted below.
--- NOTE | 2022-08-11 15:57 | Anesthesiology Progress Note ---
Date of Service August 11, 2022 Anesthesia Post Procedure Vital Signs Vital Signs: Temp Pulse Pulse Resp BP Pulse Ox O2 Del Method 08/11/22 15:50 37.2 C 66 12 100/44 L 96 Room Air 08/11/22 15:40 58 L 19 97/50 L 97 Room Air 08/11/22 15:33 36.8 C 65 16 92/47 L 97 Oxymask 08/11/22 13:50 37.1 C 61 18 110/65 99 Room Air 08/11/22 07:39 36.9 C 54 L 18 94/51 L 95 Room Air 08/10/22 22:03 36.6 C 60 14 107/67 100 Room Air O2 Flow Rate 08/11/22 15:50 08/11/22 15:40 08/11/22 15:33 5 08/11/22 13:50 08/11/22 07:39 08/10/22 22:03 Pain Intensity Abdomen: Pain Intensity: 2 Transfer of Care Handoff Completed per policy Notes Mental Status: alert / awake / arousable Patient Amnestic to Procedure: Yes Nausea / Vomiting: adequately controlled Pain: adequately controlled Airway Patency, RR, SpO2: stable & adequate BP & HR: stable & adequate Hydration State: stable & adequate Anesthetic Complications: no major complications apparent and Pt Satisfied with anesthetic care
--- NOTE | 2022-08-11 16:00 | GI REPORT ---
Patient Name: Khris Moraes Procedure Date: 08/11/2022 2:40 PM Date of : 2000 Admit Type: Inpatient Age: 21 Gender: Male Attending MD: Armando Beasley MD Procedure: Upper GI endoscopy Providers: Armando Beasley MD Referring MD: Heath Paz Md Indications: Abdominal pain Medicines: Propofol per Anesthesia Complications: No immediate complications. Estimated Blood Loss: Estimated blood loss: none. Procedure: Pre-Anesthesia Assessment: - Prior to the procedure, a History and Physical was performed, and patient medications, allergies and sensitivities were reviewed. The patient's tolerance of previous anesthesia was reviewed. - The risks and benefits of the procedure and the sedation options and risks were discussed with the patient. All questions were answered and informed consent was obtained. - Patient identification and proposed procedure were verified prior to the procedure by the physician and the nurse. The procedure was verified in the procedure room. - Pre-procedure physical examination revealed no contraindications to sedation. After obtaining informed consent, the endoscope was passed under direct vision. Throughout the procedure, the patient's blood pressure, pulse, and oxygen saturations were monitored continuously. The Endoscope was introduced through the mouth, and advanced to the second part of duodenum. The upper GI endoscopy was accomplished without difficulty. The patient tolerated the procedure well. 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 The examined esophagus was normal. The entire examined stomach was normal. Biopsies were taken with a cold forceps for Helicobacter pylori testing. Verification of patient identification for the specimen was done by the physician and nurse using the patient's name and date. The duodenal bulb and second portion of the duodenum were normal. Biopsies for histology were taken with a cold forceps for evaluation of celiac disease. Impression: - Ectopic gastric mucosa in the upper third of the esophagus. - Normal esophagus. - Normal stomach. Biopsied. - Normal duodenal bulb and second portion of the duodenum. Biopsied. Recommendation: - Await pathology results. - Perform an upper endoscopic ultrasound (UEUS) today. Armando Beasley MD 08/11/2022 4:00:25 PM This report has been signed electronically. Note Initiated On: 08/11/2022 2:40 PM Number of Addenda: 0 I attest to the content of the Intraoperative Record and orders documented therein, exceptions below {[id number]}
--- NOTE | 2022-08-11 16:03 | GI REPORT ---
Patient Name: Khris Moraes Procedure Date: 08/11/2022 2:48 PM Date of : 2000 Admit Type: Inpatient Age: 21 Gender: Male Attending MD: Armando Beasley MD Procedure: Upper EUS Providers: Armando Beasley MD Referring MD: Heath Paz Md Indications: Abdominal pain, Acute pancreatitis Medicines: Propofol per Anesthesia Complications: No immediate complications. Estimated Blood Loss: Estimated blood loss: none. Procedure: Pre-Anesthesia Assessment: - Prior to the procedure, a History and Physical was performed, and patient medications, allergies and sensitivities were reviewed. The patient's tolerance of previous anesthesia was reviewed. - The risks and benefits of the procedure and the sedation options and risks were discussed with the patient. All questions were answered and informed consent was obtained. - Patient identification and proposed procedure were verified prior to the procedure by the physician and the nurse. The procedure was verified in the procedure room. - Pre-procedure physical examination revealed no contraindications to sedation. After obtaining informed consent, the endoscope was passed under direct vision. Throughout the procedure, the patient's blood pressure, pulse, and oxygen saturations were monitored continuously. The Scope was introduced through the mouth, and advanced to the second part of duodenum. The upper EUS was accomplished without difficulty. The patient tolerated the procedure well. Findings: ENDOSONOGRAPHIC FINDING: : There was no sign of significant endosonographic abnormality in the ampulla. No masses were identified. There was no sign of significant endosonographic abnormality in the common bile duct. The maximum diameter of the duct was 3 mm. No stones and no biliary sludge were identified. A small amount of hyperechoic material consistent with sludge was visualized endosonographically in the gallbladder. There was no sign of significant endosonographic abnormality in the visualized portion of the liver. Homogeneous parenchyma was identified. There was no sign of significant endosonographic abnormality in the entire pancreas. The pancreatic duct measured up to 2 mm in diameter. There was no sign of significant endosonographic abnormality in the visualized portion of the left adrenal gland. There was no sign of significant endosonographic abnormality involving the celiac trunk. Impression: - There was no sign of significant pathology in the ampulla. - There was no sign of significant pathology in the common bile duct. - Hyperechoic material consistent with sludge was visualized endosonographically in the gallbladder. - There was no evidence of significant pathology in the visualized portion of the liver. - There was no sign of significant pathology in the entire pancreas. - Endosonographic images of the left adrenal gland were unremarkable. - The celiac trunk was endosonographically normal. Recommendation: - [facility] - Refer to a surgeon for cholecystectomy (his acute pancreatitis is likely due to microlithiasis/GB sludge). - Recall GI if needed. Armando Beasley MD 08/11/2022 4:03:11 PM This report has been signed electronically. Note Initiated On: 08/11/2022 2:48 PM Number of Addenda: 0 I attest to the content of the Intraoperative Record and orders documented therein, exceptions below {[id number]}
[2022-08-12] MEDS: [UNRECOGNIZED DRUG - OTHER] IV SCH (02:55)
[2022-08-12] MEDS: ACETAMINOPHEN IV SCH (02:55)
[2022-08-12 07:26] LABS: Hematocrit (blood only) 37.6 % (40.1-51.0); Hemoglobin 13.3 g/dl (14.0-18.0); Mean Corpuscular Hemoglobin 29.4 pg (25.0-34.0); Mean Corpuscular Hgb Conc 35.4 g/dL (32.0-36.0); Platelet Count 148 K/uL (130-400); RDW Coefficient of Variation 11.7 % (11.5-14.5); RDW Standard Deviation 35.3 fL (36.4-46.3); Red Blood Count 4.53 M/uL (4.63-6.08); White Blood Count 7.75 K/ul (4.8-10.8)
[2022-08-12 07:49] LABS: Alanine Aminotransferase 15 U/L (7-52); Albumin Globulin Ratio 1.9 (0.9-2); Albumin Level 4.3 gm/dl (3.4-5.0); Alkaline Phosphatase 47 U/L (34-104); Anion Gap 6 (3-11); Aspartate Aminotransferase 11 U/L (13-39); BUN Creatinine Ratio 23.3 (10-20); Bilirubin,Total 1.6 mg/dl (0.2-1.0); Blood Urea Nitrogen 17 mg/dl (6-23); Calcium 9.5 mg/dl (8.5-10.1); Carbon Dioxide 25 mmol/L (21-32); Chloride 107 mmol/L (98-107); Creatinine Clr Calc Pharmacy 120.7 ml/min; Est GFR (African American) > 150.0 ml/min; Est GFR (Non-African American) 130.7 ml/min; Globulin 2.3 gm/dl (2.5-4.0); Glucose 105 mg/dl (70-99(Fasting)); Magnesium 2.1 mg/dl (1.7-2.4); Sodium 138 mmol/L (136-145); Total Protein 6.6 gm/dl (6.0-8.3)
[2022-08-12] MEDS: SUCRALFATE 1 GM/10 ML UDC PO SCH ×2 (08:46→13:20)
[2022-08-12] MEDS: PANTOprazole 40 MG in SYRINGE 0 ML IV SCH (08:46)
--- NOTE | 2022-08-12 09:20 | Surgery Consultation ---
Date of Consultation August 12, 2022 Assessment & Plan (1) Abdominal wall pain in right upper quadrant: This is a 21y M with PMH of anxiety who presents to the [facility] ED on 08/06/22 with a 2month history of abdominal pain that has worsened over the last 2 weeks. Blood work on admission revealed a lipase of 456, Tb: 3.6, ALT/AST normal, WBC normal. Imaging studies with CT a/p, RUQ US, MRCP all negative for gallbladder or biliary pathology. Pain team performed trigger point injections on 08/10 with initial relief, but patient says pain returned yesterday evening. Per their note it may take up to 2 weeks for the injections to take full effect. Yesterday the patient underwent a EUS and EGD with GI that did not show any gastric ulcers. The EUS showed concern for +microlithiasis & sludge, therefore a consultation was placed for us given possibility that may have been the culprit of his pancreatitis on admission. Today patient's VSS, labs reveal WBC 7.7, Tb downtrendin.6, ALT: 15, AST: 11, Lipase yesterday 26. On exam patient's abdomen is thin, non distended, with tenderness to palpation in the RUQ. Discussed options with patient..can wait and see over the next week or so if the trigger point injections are working for him and if not follow up with us in the office for elective cholecystectomy. Versus since GI has completed their inpt workup, consider taking GB out this admission if we are able to find some OR time. Will discuss with Dr. Damon. Supervising Physician Co-Signing Physician Notes Patient seen and examined, labs and imaging reviewed, agree with above. 21-year-old male with 1 year history of intermittent right upper quadrant pain. This is not associated with meals. He was admitted and had elevated lipase. All imaging was negative for gallstones or cholecystitis. He underwent an EGD and endoscopic ultrasound by GI yesterday and was noted to have sludge and possibly microlithiasis. He denies any significant alcohol use. On exam he is afebrile with stable vitals. Tender to palpation in the right upper quadrant with no guarding or rebound. Labs are unremarkable except for an unconjugated hyperbilirubinemia. CT scan, ultrasound were personally reviewed and interpreted by myself and agree with the assessment. Pancreatitis, possible biliary etiology due to microlithiasis and sludge Will plan for outpatient robotic assisted laparoscopic cholecystectomy with possible cholangiogram We have tentatively plan this for Wednesday of next week, 19 August 2022. The risks of the procedure were discussed to include but not limited to bleeding, infection, retained stone, bile leak, open surgery, damage to surrounding structures including bile duct, need for future or more extensive surgery, failure to treat symptoms, and risks of anesthesia. Patient will follow up in clinic later this week or early next week to sign consent Recommend low-fat diet for now, alcohol abstinence Okay to discharge from general surgery standpoint Call with questions or concerns History of Present Illness Attending Physician: Heath Paz MD History of Present Illness This is a 21y M with PMH of anxiety who presents to the [facility] ED on 08/06/22 with complaints of abdominal pain. Patient tells me he has been having RUQ abdominal pain that waxes and wanes over the last two months, that has become more constant and severe over the last 2 weeks. He states it has precluded him from being able to eat or sleep, which prompted him to come into the ER for further evaluation. Workup with a CT a/p which was negative for gallbladder etiology. He was admitted to the hospital service due to elevated liver enzymes and lipase of 456. Patient describes the pain as located in the RUQ and has been fairly constant, worsening at night and after eating. He rates his pain a 6-7/10 that sometimes shoots up to an 8/10 at its worst. He reports + nausea, no vomiting, fevers/chills, CP/SOB. He denies any dark tea colored urine or evie colored stools. He reports some yellowing of the eyes over the last 2 weeks. No prior surgical history. His Gma and aunt both had their GB out. He denies any recent alcohol use. Pain management saw patient on 08/10 and performed trigger point injections, with initial relief in pain, but patient states it returned in its usual fashion yesterday evening. Allergies Allergy/AdvReac Type Severity Reaction Status Date / Time No Known Allergies Allergy Verified 08/06/22 14:30 Home Medications Medication Instructions Recorded Confirmed Type bgbqhmaudr-EN-jzrgoberjllfb 6.25 2 cap PO DIRECTED PRN COLD 08/04/22 08/06/22 History mg-15 mg-325 mg capsule (Vicks SYMPTOMS/SLEEP NyQuil Cold/Flu Liquicap) calcium carbonate 1,000 1 tab PO TID 08/06/22 08/06/22 History mg-magnesium hydroxide 200 mg chewable tablet (Rolaids Antacid Ultra Strength) Patient History Medical History Abdominal wall pain in right upper quadrant No pertinent past medical history Social History Smoking Status: Current every day smoker Tobacco Type: E-cigarettes / Vaping Second Hand Exposure: No; Hx Alcohol Use: Yes Alcohol type: beer Hx Substance Use: No Preferred Language: Greenlandic Communication Ability: Effective Dental Appliance Fixer Required: No Beliefs That Will Affect Care: None marital status: Single Current Living Situation: Alone and Family How many Children do You have: 0 Feels Safe at Home: No Is there a partner from a previous relationship who is making you feel unsafe now?: No Assistive Devices: None Review of Systems Constitutional: no fever and no chills Respiratory: no dyspnea Cardiovascular: no chest pain Gastrointestinal: + abdominal pain (RUQ) and + nausea; no vomiting Musculoskeletal: no back pain Physical Exam Physical Exam: awake/alert Constitutional: well developed, well nourished and + thin; no acute distress Respiratory: normal respiratory effort Gastrointestinal (Abdomen): Inspection/Auscultation: abdomen not distended Percussion/Palpation: + abdomen tender (ttp in RUQ) and abdomen soft Results & Data ([facility]) Vital Signs (Past 12 Hours) Vital Signs Temp Pulse Pulse Resp BP Pulse Ox O2 Del Method 08/12/22 07:28 36.5 C 50 L 14 94/58 L 99 Room Air 08/12/22 05:01 36.3 C L 48 L 18 97/57 L 98 Room Air 08/12/22 00:00 36.8 C 56 L 16 97/55 L 96 Room Air Diagnostic Findings CT SCAN OF THE ABDOMEN AND PELVIS WITH IV CONTRAST CLINICAL HISTORY: Nausea. Right lower quadrant abdominal pain. COMPARISON STUDY: No priors. TECHNIQUE: Following the IV administration of 90 cc of Optiray 350, CT scan of the abdomen and pelvis is performed from the lung bases to the proximal femora. Images are reviewed in the axial, sagittal, and coronal planes. IV contrast was administered without complication. Oral contrast was utilized. A dose lowering technique was utilized adhering to the principles of ALARA. CT DOSE: 266.30 mGy.cm FINDINGS: Lung bases: The heart is normal in size and without pericardial effusion. The lung bases are clear. There are bilateral Bochdalek hernias. Liver: The contrast-enhanced liver is normal in size, contour, and attenuation. There is no intrahepatic biliary ductal dilatation. The hepatic veins and portal veins are patent. Gallbladder: Unremarkable. Spleen: Normal in size and attenuation. Pancreas: Unremarkable. Adrenal glands: Unremarkable. Kidneys: The contrast enhanced kidneys are normal in size and without hydronephrosis. The kidneys enhance symmetrically. Abdominal vasculature: The abdominal aorta is normal in course and caliber. Bowel: There is no bowel obstruction. Enteric contrast reaches the rectum. The appendix is well-visualized and normal. Peritoneum: There is no intraperitoneal free air or abdominal ascites. Lymphadenopathy: None. Pelvic viscera: The bladder is distended but otherwise normal in appearance. The prostate and seminal vesicles are normal as imaged. Skeletal structures: No lytic or blastic lesions are seen. IMPRESSION: No acute infectious or inflammatory findings are identified in the abdomen or pelvis. ACT 112: Negative or not required by law. Electronically signed by: Willy Stone M.D. 08/05/2022 7:18 AM ABDOMINAL ULTRASOUND, RIGHT UPPER QUADRANT HISTORY: Right upper quadrant abdominal pain.. COMPARISON: Abdomen and pelvis CT 08/05/2022. FINDINGS: Pancreas: The pancreas demonstrates a normal echotexture. Liver: Unremarkable. Gallbladder: No gallbladder wall thickening. No gallstones. CBD: 2 mm. Right kidney: No hydronephrosis. IMPRESSION: No significant abnormality identified within the right upper quadrant. ACT 112: Negative or not required by law. Electronically signed by: Kris Mattson M.D. 08/06/2022 12:22 PM MR MRCP HISTORY: 21 years-old Male increased lipase, upper abdominal pain. Eval PD. Acute right upper quadrant abdominal pain COMPARISON: CT abdomen pelvis 08/05/2022, ultrasound 08/06/2022 TECHNIQUE: MRCP was obtained without the use of IV contrast. FINDINGS: Or chest unremarkable with trace pleural effusions. Unremarkable spleen, pancreas, gallbladder and adrenal glands. Pancreatic duct is normal in caliber. Unremarkable liver. The study is degraded by respiratory motion artifact. Kidneys are within normal limits. No bowel obstruction or lymphadenopathy. Free pelvic fluid is likely physiologic. Unremarkable soft tissues. No cholelithiasis or choledocholithiasis. Common bile duct measures 3 mm. No intrahepatic or extrahepatic biliary ductal dilation. IMPRESSION: 1. Mildly motion degraded exam. 2. Unremarkable gallbladder. 3. No biliary or pancreatic ductal dilation or choledocholithiasis. ACT 112: Negative or not required by law. The above report was generated using voice recognition software. It may contain grammatical, syntax or spelling errors. Electronically signed by: Juan Antonio Torres M.D. 08/09/2022 7:31 PM DICTATED BY:Armando Beasley MD Patient Name: Khris Moraes Procedure Date: 08/11/2022 2:48 PM Date of : 2000 Admit Type: Inpatient Age: 21 Gender: Male Attending MD: Armando Beasley MD Procedure: Upper EUS Providers: Armando Beasley MD Referring MD: Heath Paz Md Indications: Abdominal pain, Acute pancreatitis Medicines: Propofol per Anesthesia Complications: No immediate complications. Estimated Blood Loss: Estimated blood loss: none. Procedure: Pre-Anesthesia Assessment: - Prior to the procedure, a History and Physical was performed, and patient medications, allergies and sensitivities were reviewed. The patient's tolerance of previous anesthesia was reviewed. - The risks and benefits of the procedure and the sedation options and risks were discussed with the patient. All questions were answered and informed consent was obtained. - Patient identification and proposed procedure were verified prior to the procedure by the physician and the nurse. The procedure was verified in the procedure room. - Pre-procedure physical examination revealed no contraindications to sedation. After obtaining informed consent, the endoscope was passed under direct vision. Throughout the procedure, the patient's blood pressure, pulse, and oxygen saturations were monitored continuously. The Scope was introduced through the mouth, and advanced to the second part of duodenum. The upper EUS was accomplished without difficulty. The patient tolerated the procedure well. Findings: ENDOSONOGRAPHIC FINDING: : There was no sign of significant endosonographic abnormality in the ampulla. No masses were identified. There was no sign of significant endosonographic abnormality in the common bile duct. The maximum diameter of the duct was 3 mm. No stones and no biliary sludge were identified. A small amount of hyperechoic material consistent with sludge was visualized endosonographically in the gallbladder. There was no sign of significant endosonographic abnormality in the visualized portion of the liver. Homogeneous parenchyma was identified. There was no sign of significant endosonographic abnormality in the entire pancreas. The pancreatic duct measured up to 2 mm in diameter. There was no sign of significant endosonographic abnormality in the visualized portion of the left adrenal gland. There was no sign of significant endosonographic abnormality involving the celiac trunk. Impression: - There was no sign of significant pathology in the ampulla. - There was no sign of significant pathology in the common bile duct. - Hyperechoic material consistent with sludge was visualized endosonographically in the gallbladder. - There was no evidence of significant pathology in the visualized portion of the liver. - There was no sign of significant pathology in the entire pancreas. - Endosonographic images of the left adrenal gland were unremarkable. - The celiac trunk was endosonographically normal. Recommendation: - [facility] - Refer to a surgeon for cholecystectomy (his acute pancreatitis is likely due to microlithiasis/GB sludge). - Recall GI if needed. Armando Beasley MD 08/11/2022 4:03:11 PM PG Care Time/CCT Total # of Minutes Spent Total Time Spent with Patient: Total time spent is greater than 50% in coordination of care (as documented) at patient's floor/unit and/or counseling patient: Coding Level of Care Code 21702 Inpt Consult Level 3 Diagnoses Abdominal wall pain in right upper quadrant R10.11
[2022-08-12 09:57] LABS: Codeine Urine NEGATIVE ng/mL (<50); Hydrocodone Urine NEGATIVE ng/mL (<50); Hydromor Urine 116 ng/mL (<50); Morphine Urine 383 ng/mL (<50); Norhydrocodone Conf Ur NEGATIVE ng/mL (<50); Noroxycodone Urine NEGATIVE ng/mL (<50); Oxycodone Urine NEGATIVE ng/mL (<50); Oxymorph Urine NEGATIVE ng/mL (<50)
[2022-08-12] MEDS: HYDROmorphone INJ 1 MG/ML SYRINGE IV PRN (11:25)
--- NOTE | 2022-08-12 15:23 | Hospitalist Progress Note ---
Date of Service August 12, 2022 Assessment & Plan (1) Abdominal pain: Plan: History of intermittent epigastric/right upper quadrant pain since college however pain is much worse and has been almost debilitating over the last week to 2 weeks. Pain is worse with eating and at nighttime. (Possible) Myofascial abdominal pain. Patient is not taking NSAIDs in excess, and denies regular alcohol use. No hemodynamic instability. On admission noted to have a lipase of 456. TBili 3.5, normal direct bili. CT abdomen and pelvis without evidence of acute intra-abdominal pathology. Right upper quadrant ultrasound performed; no abnormal findings. MRCP without abnormality on 08/09. Lipid panel without evidence of hypertriglyceridemia. Stool pathogen panel negative. Giardia pending. IgA/TTG IgA still pending. Urine tox screen negative for marijuana. Continue PPI BID and Carafate q6h. Continue regular diet. Gastroenterology consulted and appreciate recommendations: EGD/EUS on 08/11 without issue on mucosa, but did see microcalcifications and sludge. Plan for lap ryan with surgery, though still pending timing. Pain management consulted -> Did trigger point injections on 08/10 with substantial improvement. - Stop opiates. Will trial Bentyl for cramping abdominal pain. (2) Pancreatitis: Plan: See above (3) Anxiety: Plan: Patient with a self-reported history of anxiety that has been going on since college. Patient has not sought counseling or medication for this in the past. I do anticipate that some amount of stress/anxiety is culpable in his abdominal pain, either as a symptom of anxiety or gastritis secondary to stress. Will get patient established with PCP in the area to discuss anxiety and consider medication for such, as well as recommended patient reach out to [facility] for counseling. Admission and Anticipated Discharge Date Admission Date: August 06, 2022 Subjective Stable today. Still with some pain that came up after eating. Will try to eat today and see how he's feeling. Physical Exam Constitutional: WD/WN, vitals as above Eyes: EOM intact bilaterally; no conjunctival abnormality ENMT: external ear and nose normal, oropharynx normal Neck: trachea midline, no thyromegaly normal visual inspection Respiratory: normal respiratory effort, lungs clear to auscultation no respiratory distress Cardiovascular: RRR, no murmur, no edema Gastrointestinal (Abdomen): Inspection/Auscultation: abdomen normal to inspection; abdomen not distended Musculoskeletal: no cyanosis or clubbing, extremities motor strength 5/5 Skin: no rashes, warm and dry Neurologic: moves all extremities and awake Psychiatric: Orientation: alert, oriented to person and cooperative Results & Data Results & Data ([facility]) Vital Signs (Past 12 Hours) Vital Signs Temp Pulse Pulse Resp BP Pulse Ox O2 Del Method 08/12/22 14:58 36.8 C 82 14 106/62 96 Room Air 08/12/22 07:28 36.5 C 50 L 14 94/58 L 99 Room Air 08/12/22 05:01 36.3 C L 48 L 18 97/57 L 98 Room Air PG Care Time/CCT Total # of Minutes Spent Total Time Spent with Patient: Total time spent is greater than 50% in coordination of care (as documented) at patient's floor/unit and/or counseling patient: Coding Level of Care Code 77412 Subseq Hosp Care Lvl 2 Diagnoses Abdominal pain R10.9 Pancreatitis K85.90 Anxiety F41.9
[2022-08-12] MEDS: DICYCLOMINE HCL 10 MG CAP PO PRN ×2 (16:57→22:36)
[2022-08-12] MEDS: ACETAMINOPHEN 325 MG TAB PO PRN ×2 (16:57→21:33)
--- NOTE | 2022-08-13 17:41 | Discharge Summary ---
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 He states that his abdominal pain initially started when he moved to [place] this past June. He has had some chronic abdominal discomfort in the past, especially with eating, but he states that the pain has been significantly worse recently. He states that the pain is mainly located in the RUQ/epigastric region, he describes it as a constant, sharp/stabbing pain which is a 5/10 at rest but a 10/10 after eating, with movement or at night. He notes that the pain also goes to his back at times. He initially tried to adjust his diet when the pain became worse about 1 week ago. He was eating mostly chicken, homemade smoothies and salads, but this did not improve his symptoms. He has been nauseous but has not vomited. He has been having approximately 2-3 bowel movements per day over the past month, however, over the past two days he has been having watery diarrhea and has noted mucus in his stool. He does not believe that he has had any well water to drink recently, does not have a history of previously diagnosed abdominal issues, has never seen a GI provider, and does not believe that his family has a history of high triglycerides. Prior to the past month of worsening pain he would causally drink alcohol, he currently uses a Vape pen, and denies recreation drug use. He has not had any recent fevers or chills, chest pain, SOB, dysuria, hematuria, hematemesis, or swelling. The patient was seen on 08/04 in the [facility] ED for the same symptoms. He says over the past week the pain and nausea have been so bad that he has had poor oral intake and has not been able to sleep over the past 48 hours. At that time his lipase was 38, CT of the abd/pelvis with IV contrast was negative for acute or inflammatory findings but did show bilateral Bochdalek hernias. Today, the patient is afebrile, hemodynamically stable, and stable on room air. Labs are remarkable for a white count WNL, D-Dimer WNL, AG of 12 with normal bicarb, calcium of 10.6, total bili of 3.6, normal AST, ALT, and Alk phose, and lipase of 456. Chest xray was negative for acute findings. RUQ US was also negative for acute findings. In the Ed the patient was given 1L NSS, 15 mg IV toradol, and 4 mg IV morphine. Principal Diagnosis Likely gallbladder sludge and microcalcifications causing abdominal pain Possibly some element of MSK pain as well Discharge Exam Constitutional WD/WN, vitals as above Eyes EOM intact bilaterally; no conjunctival abnormality ENMT external ear and nose normal, oropharynx normal Neck trachea midline, no thyromegaly normal visual inspection Respiratory normal respiratory effort, lungs clear to auscultation no respiratory distress Cardiovascular RRR, no murmur, no edema Gastrointestinal (Abdomen) Inspection/Auscultation: abdomen normal to inspection; abdomen not distended Musculoskeletal no cyanosis or clubbing, extremities motor strength 5/5 Skin no rashes, warm and dry Neurologic moves all extremities and awake Psychiatric Orientation: alert, oriented to person and cooperative Discharge Data Allergies Allergy/AdvReac Type Severity Reaction Status Date / Time No Known Allergies Allergy Verified 08/06/22 14:30 Consultations 08/06/22 13:58 ED Decision to Admit Stat 08/06/22 16:06 ED Decision to Admit Stat 08/08/22 23:00 Consult Gastroenterology Routine 08/09/22 15:13 Consult Pain Management Routine 08/11/22 16:06 Consult General Surgery Routine Procedures Performed Operation Date: 08/11/22 07:00 Actual Procedures s Esophagogastroduodenoscopy - Armando Beasley MD p Endoscopic Retrograde Cholangiopancreatogram - Armando Beasley MD Ordered Studies 08/06/22 11:16 US gallbladder Stat 08/09/22 14:13 MRI MRCP [MR MRCP] Routine 08/11/22 14:30 US upper EUS PACS images Routine Hospital Course (1) Abdominal pain: History of intermittent epigastric/right upper quadrant pain since college however pain is much worse and has been almost debilitating over the last week to 2 weeks. Pain is worse with eating and at nighttime. (Possible) Myofascial abdominal pain, though not entirely clear. Pain management consulted -> Did trigger point injections on 08/10 with substantial improvement. EGD/EUS on 08/11 without issue on mucosa, but did see microcalcifications and sludge. -> On 08/13, patient had good pain control with Tylenol and Bentyl. Surgery did not feel lap ryan was urgent. Will see them on Wednesday in office, then plan for surgery on Wednesday. (2) Anxiety: Patient with a self-reported history of anxiety that has been going on since college. Patient has not sought counseling or medication for this in the past. - Will get patient established with PCP in the area to discuss anxiety and consider medication for such, as well as recommended patient reach out to [facility] for counseling. Total Time Total Time Spent Total Time Spent (In Minutes): 35 Discharge Plan Discharge Items Patient Disposition: Home - Self-Care Reason For Visit: ABDOMINAL PAIN Discharge Diagnosis: Abdominal pain -> Likely gallbladder-related with some component of musculoskel etal pain Activity: Resume your previous activity Non-emergency contact: Surgeon Call non-emergency contact if: your symptoms worsen, your pain is not controlled and your temperature is above 101 Follow-up/Referrals: Stefano Damon DO, FACS [Physician] - 08/17/22 11:15 am (You have an appointment with Dr. Damon on Wednesday08/17/22 at 11:15am. ) Jasmina Mcclellan MD [Resident] - Diet: Low Fat Addtl Attending Provider Instructions: Mr. Moraes, Alex were admitted to the hospital with abdominal pain that we believe is largely related to your gallbladder being filled with sludge and "micro-stones." The GI team saw this sludge on your testing while in the hospital. We are sending you home with close follow-up with the surgical team who plan to take your gallbladder out next week. There is possibly some component of muscular issues with it, as the trigger- point injections from pain management improved your pain somewhat, but at this time, we don't think it's the primary cause of the pain. Please use Tylenol ([id number]) and Bentyl to help manage your pain through the weekend. As we discussed, please avoid high fat foods, food with high acidity (tomatoes, oranges, etc), and try to stick with a bland diet. The surgical team will see you on Wednesday, with the plan to have your gallbladder taken out on Wednesday. You are always free to return to the hospital if you have nausea, worsening abdominal pain, vomiting, fever, or other concerning symptoms, but we think these will be very unlikely. Pending Studies at Discharge: No Stand-Alone Forms: My [facility], Smoking Cessation Medications and DC Order Prescriptions: New acetaminophen 325 mg Tablet 650 mg PO Q4H PRN (Reason: pain) Qty: 0 0RF dicyclomine 10 mg Capsule 10 mg PO TID PRN (Reason: stomach cramping pain) Qty: 30 0RF Continued Vicks NyQuil Cold/Flu Liquicap 6.25-15-325 mg Capsule 2 cap PO DIRECTED PRN (Reason: COLD SYMPTOMS/SLEEP) Rolaids Antacid Ultra Strength 1,000-200 mg Tablet,Chewable 1 tab PO TID Discharge Orders: Discharge Order (Routine); Ordered 08/13/22 Ordered By: Heath Paz Admission Data Admit Date/Time: 08/06/22 15:47 Attending Provider: Heath Paz Admit Provider: Davide Mtz Primary Care Provider: [facility] Other Providers: Daivde Mtz ; Jamir Jones ; Eric Glass ; Mary Jane lCements ; Andre Paz ; Elías Vega ; Loli Smith ; Emma Nagel ; Francisco Javier Thomas ; Derek Perkins ; Ela Perera ; Nan Stockton ; Mohsen Winkler Jr ; Sarabjit Benavidez ; Trey Ruelas ; Mónica Knight Other Interventions: Discharge Summary Assessment (RN) Last Done: 08/13/22 11:35 Coding Level of Care Code D/C DAY MANAGEMENT >30 MINS Diagnoses Abdominal pain R10.9 Anxiety F41.9
== END 2022-08-13 12:23 | disposition home or self-care (01) | DRG 556 ==
LOC: ED 10:44 → 3W 15:47 → SUATTDRO 15:47 → 3W 17:04
DX: E80.4 Gilbert syndrome; M79.18 Myalgia, other site; F17.290 Nicotine dependence, other tobacco product, uncomplicated; K82.8 Other specified diseases of gallbladder; U07.0 Vaping-related disorder

== ENCOUNTER 2022-09-30 18:08 | Inpatient (IN) ==
[2022-09-30 18:40] LABS: Basophils # (auto) 0.04 K/uL (0-0.2); Basophils % (auto) 0.3 %; Hematocrit (blood only) 39.8 % (40.1-51.0); Immature Granulocytes # (auto) 0.04 K/uL (0.00-0.02); Immature Granulocytes % (auto) 0.3 %; Lymphocytes % (auto) 5.9 %; Mean Corpuscular Hemoglobin 29.5 pg (25.0-34.0); Mean Corpuscular Hgb Conc 35.2 g/dL (32.0-36.0); Mean Platelet Volume 9.2 fL (9.4-12.4); Monocytes # (auto) 1.11 K/uL (0.24-0.82); Monocytes % (auto) 8.2 %; Neutrophils # (auto) 11.61 K/uL (1.4-6.5); Neutrophils % (auto) 85.3 %; Platelet Count 223 K/uL (130-400); RDW Coefficient of Variation 12.6 % (11.5-14.5); RDW Standard Deviation 38.6 fL (36.4-46.3); Red Blood Count 4.74 M/uL (4.63-6.08)
[2022-09-30 18:59] LABS: Acetaminophen < 3 ug/ml (10-30); Alanine Aminotransferase 19 U/L (7-52); Albumin Globulin Ratio 1.9 (0.9-2); Albumin Level 4.9 gm/dl (3.4-5.0); Alkaline Phosphatase 58 U/L (34-104); Anion Gap 12 (3-11); Aspartate Aminotransferase 16 U/L (13-39); BUN Creatinine Ratio 21.7 (10-20); Bilirubin,Total 2.5 mg/dl (0.2-1.0); Blood Urea Nitrogen 15 mg/dl (6-23); Calcium 9.5 mg/dl (8.5-10.1); Carbon Dioxide 21 mmol/L (21-32); Chloride 103 mmol/L (98-107); Est GFR (African American) > 150.0 ml/min; Est GFR (Non-African American) 132.9 ml/min; Globulin 2.6 gm/dl (2.5-4.0); Glucose 110 mg/dl (70-99(Fasting)); Lipase 51 U/L (11-82); Potassium 4.1 mmol/L (3.5-5.1); Salicylate < 3.0 mg/dl (3.0-30); Sodium 136 mmol/L (136-145); Total Protein 7.5 gm/dl (6.0-8.3)
--- NOTE | 2022-09-30 19:08 | Emergency Department Note ---
History of Present Illness General Chief Complaint: Overdose (Intentional) Time Seen by Provider: 09/30/22 18:09 History of Present Illness Provider Complaint: + intentional overdose Timing confirmed by: + EMS HPI Narrative: 22-year-old male presents emergency department for intentional overdose. Patient reports he tried to overdose to kill himself by taking an excess amount of his Zoloft. Patient states he does not know the strength of his Zoloft. Patient states he took 24 tablets between Wednesday night and 11 AM today. He denies any access to any firearms. No drugs or alcohol. Intent: suicide attempt Context: Intentional Overdose: depressed and prior psychiatric issues Associated symptoms: depression Home Medications Medication Instructions Recorded Confirmed Type acetaminophen 325 mg capsule 325 mg PO QID PRN 08/31/22 08/31/22 History (Tylenol) Allergies Allergy/AdvReac Type Severity Reaction Status Date / Time No Known Allergies Allergy Verified 08/31/22 10:55 Past Med/Surg History Medical History Abdominal wall pain in right upper quadrant Anxiety Cholelithiasis Gallstone pancreatitis History of COVID-19 09/2021 > mild symptoms, resolved Pancreatitis 08/06/22 Surgical History H/O removal of cyst History of ERCP History of esophagogastroduodenoscopy History of hernia surgery Hx laparoscopic cholecystectomy (08/19/22) Robotic Assisted Laparoscopic Cholecystectomy - Stefano Damon DO, FACS Family History Grandmother Cancer Social History Smoking Status: Current every day smoker Tobacco Type: E-cigarettes / Vaping Second Hand Exposure: No; Hx Alcohol Use: No Hx Substance Use: No Preferred Language: Israeli Communication Ability: Effective Glycerin Operator Required: No Beliefs That Will Affect Care: None marital status: Single Current Living Situation: Alone current occupational status: student How many Children do You have: 0 Feels Safe at Home: Yes during the past year weight has: remained stable Assistive Devices: Glasses Review of Systems A total of 10 systems reviewed and were otherwise negative Physical Exam Vital Signs: Vital Signs - 24 hr 09/30/22 18:18 09/30/22 18:24 Temperature 37.2 C Temperature Source Oral Pulse Rate 132 H Pulse Rhythm Regular Pulse Strength Normal Respiratory Rate 26 H Respiratory Effort / Characteristics Non-Labored Sponta neous Respiratory Depth Normal Respiratory Patter n Regular Blood Pressure 120/65 Blood Pressure Judith n 83 Blood Pressure Pos ition Sitting Pulse Oximetry 95 95 Oxygen Delivery Me thod Room Air Room Air Oxygen Flow Rate 0 Sepsis Recent Feve r Within 48 Hours No Sepsis New/Unexpla ined Change in Men ruperto Status N/A Sepsis Action Take n by Nursing No Action Required Physical Exam: Physical Exam HENT: Exam performed. - Head: Normocephalic and atraumatic. - Right Ear: External ear normal. No mastoid tenderness. - Left Ear: External ear normal. No mastoid tenderness. - Mouth/Throat: The oropharynx is clear and moist. No trismus in the jaw. No dental abscesses or uvula swelling. No oropharyngeal exudate or tonsillar abscesses. EYES: Conjunctivae and EOM are normal. Pupils are equal, round, and reactive to light. Right eye exhibits no discharge. Left eye exhibits no discharge. No scleral icterus. NECK: Normal range of motion. Neck supple. No JVD present. No spinous process tenderness present. No carotid bruit present. No rigidity. No tracheal deviation and normal range of motion present. No Brudzinski's sign and no Kernig's sign noted. CV: Normal rate, regular rhythm, normal heart sounds and intact distal pulses. There is no peripheral edema. Palpable radial pulses bue. PULM/CHEST: Effort normal and breath sounds normal. No respiratory distress. No stridor. He has no wheezes. He has no rales. - Chest Wall: He exhibits no tenderness. ABD: The abdomen is soft. Surgical incisions over his anterior abdominal wall are clean and dry. Bowel sounds are normal. He has no distension. No mass is present. There is no tenderness. There is no rebound, no guarding, no La's sign and no tenderness at McBurney's point. Rovsig negative. MUSC/SKEL: Normal range of motion. There is no peripheral edema, tenderness or deformity. LYMPH: No cervical adenopathy. NEURO: He is alert and oriented to person, place, and time. He has normal strength. No cranial nerve deficit or sensory deficit. Coordination and gait normal. GCS eye subscore is 4. GCS verbal subscore is 5. GCS motor subscore is 6. Cerebellar tests wnl. SKIN: Skin is warm and dry. He is not diaphoretic. PSYCH: Patient appears depressed positive suicidal ideation. Course Course 1808: The patient was evaluated in room C12. A complete history and physical exam was performed Cardiac monitoring: An order was placed for continuous cardiac monitoring. The monitor shows a rate of 110 with sinus tachycardia rhythm 1847: Spoke with poison control. They stated that the patient can be medically cleared if his psychiatric labs are within normal limits based off the timing of his ingestion. 1908: Patient medically cleared. Awaiting psychiatric evaluation for possible psychiatric placement. Patient placed in observation at this time. 2203: Still awaiting psychiatric evaluation and placement. Patient signed out to Dr. Islas. Medical Decision Making Laboratory Data Result diagrams: 09/30/22 18:31 09/30/22 18:31 Lab Results 09/30/22 09/30/22 09/30/22 Range/Units 18:31 18:31 18:31 WBC 13.60 H (4.8-10.8) K/ul RBC 4.74 (4.63-6.08) M/uL Hgb 14.0 (14.0-18.0) g/dl Hct 39.8 L (40.1-51.0) % MCV 84.0 (80.0-100.0) fL MCH 29.5 (25.0-34.0) pg MCHC 35.2 (32.0-36.0) g/dL RDW Std Deviation 38.6 (36.4-46.3) fL RDW Coeff of Gabriella 12.6 (11.5-14.5) % Plt Count 223 (130-400) K/uL MPV 9.2 L (9.4-12.4) fL Immature Gran % (Auto) 0.3 % Neut % (Auto) 85.3 % Lymph % (Auto) 5.9 % Ocean % (Auto) 8.2 % Eos % (Auto) 0.0 % Baso % (Auto) 0.3 % Neut # (Auto) 11.61 H (1.4-6.5) K/uL Lymph # (Auto) 0.80 L (1.2-3.4) K/uL Ocean # (Auto) 1.11 H (0.24-0.82) K/uL Eos # (Auto) 0.00 (0-0.50) K/uL Baso # (Auto) 0.04 (0-0.2) K/uL Immature Gran # (Auto) 0.04 H (0.00-0.02) K/uL Sodium 136 (136-145) mmol/L Potassium 4.1 (3.5-5.1) mmol/L Chloride 103 (98-107) mmol/L Carbon Dioxide 21 (21-32) mmol/L Anion Gap 12 H (3-11) BUN 15 (6-23) mg/dl Creatinine 0.69 (0.6-1.4) mg/dl Est Cr Clr Drug Dosing Not Reportable Est GFR ( Amer) > 150.0 ml/min Est GFR (Non-Af Amer) 132.9 ml/min BUN/Creatinine Ratio 21.7 H (10-20) Glucose 110 H (70-99(Fasting)) mg/dl Calcium 9.5 (8.5-10.1) mg/dl Total Bilirubin 2.5 H (0.2-1.0) mg/dl AST 16 (13-39) U/L ALT 19 (7-52) U/L Alkaline Phosphatase 58 (34-104) U/L Total Protein 7.5 (6.0-8.3) gm/dl Albumin 4.9 (3.4-5.0) gm/dl Globulin 2.6 (2.5-4.0) gm/dl Albumin/Globulin Ratio 1.9 (0.9-2) Lipase 51 (11-82) U/L Salicylates < 3.0 L (3.0-30) mg/dl Acetaminophen < 3 L (10-30) ug/ml Ethyl Alcohol mg/dL (<10.0) mg/dl 09/30/22 Range/Units 18:31 WBC (4.8-10.8) K/ul RBC (4.63-6.08) M/uL Hgb (14.0-18.0) g/dl Hct (40.1-51.0) % MCV (80.0-100.0) fL MCH (25.0-34.0) pg MCHC (32.0-36.0) g/dL RDW Std Deviation (36.4-46.3) fL RDW Coeff of Gabriella (11.5-14.5) % Plt Count (130-400) K/uL MPV (9.4-12.4) fL Immature Gran % (Auto) % Neut % (Auto) % Lymph % (Auto) % Ocean % (Auto) % Eos % (Auto) % Baso % (Auto) % Neut # (Auto) (1.4-6.5) K/uL Lymph # (Auto) (1.2-3.4) K/uL Ocean # (Auto) (0.24-0.82) K/uL Eos # (Auto) (0-0.50) K/uL Baso # (Auto) (0-0.2) K/uL Immature Gran # (Auto) (0.00-0.02) K/uL Sodium (136-145) mmol/L Potassium (3.5-5.1) mmol/L Chloride (98-107) mmol/L Carbon Dioxide (21-32) mmol/L Anion Gap (3-11) BUN (6-23) mg/dl Creatinine (0.6-1.4) mg/dl Est Cr Clr Drug Dosing Est GFR ( Amer) ml/min Est GFR (Non-Af Amer) ml/min BUN/Creatinine Ratio (10-20) Glucose (70-99(Fasting)) mg/dl Calcium (8.5-10.1) mg/dl Total Bilirubin (0.2-1.0) mg/dl AST (13-39) U/L ALT (7-52) U/L Alkaline Phosphatase (34-104) U/L Total Protein (6.0-8.3) gm/dl Albumin (3.4-5.0) gm/dl Globulin (2.5-4.0) gm/dl Albumin/Globulin Ratio (0.9-2) Lipase (11-82) U/L Salicylates (3.0-30) mg/dl Acetaminophen (10-30) ug/ml Ethyl Alcohol mg/dL < 10.0 (<10.0) mg/dl MDM Narrative Observation note Indication: Psych eval/placement Patient, with anxiety, depression was first seen at 1809 hrs and the observation time began at 1909 hrs and was necessary in order to have psych evaluation completed . Impression & Plan Depression with suicidal ideation, SSRI overdose Discharge Plan Visit Data Chief Complaint: Overdose (Intentional) ED Provider: Hima Islas Discharge Problem: Depression with suicidal ideation, SSRI overdose Patient Disposition: Still a Patient Forms Stand Alone Forms: [facility], Suicide Prevention Resources Prescriptions Prescriptions: No Action acetaminophen [Tylenol] 325 mg capsule 325 mg PO QID PRN Referrals [facility]errals: [facility] [Primary Care Provider] -
[2022-09-30 19:17] LABS: Appearance Urine Clear (Clear); Bacteria Urine Automated Negative (Negative); Bilirubin Urine Negative (Negative); Blood Urine Negative (Negative); Color Urine Dark Yellow; Glucose Urine UA Negative (Negative); Ketones Urine Trace (Negative); Leukocyte Esterase Urine Negative (Negative); Nitrite Urine Negative (Negative); Protein Urine 1+ (Negative); RBC Urine Automated 0-4 /hpf (0-4); Specific Gravity Urine 1.034 (1.000-1.030); Urobilinogen Urine Negative (Negative); pH Urine 6.5 (4.5-7.5)
[2022-09-30] MEDS ORDERED: SODIUM CHLORIDE 0.9% 1000ML 1,000 ML IV ONE (19:20)
[2022-09-30] MEDS ORDERED: ONDANSETRON INJ 2 MG/ML 2 ML VIAL IV STA (19:20)
[2022-09-30 19:34] LABS: Amphetamines+Metham, Urine Neg (Neg); Barbiturates, Urine Neg (Neg); Benzodiazepine, Urine Pos (Neg); Cocaine, Urine Neg (Neg); MDMA (Ecstacy), Urine Neg (Neg); Methadone, Urine Neg (Neg); Opiate, Urine Neg (Neg); Phencyclidine, Urine Neg (Neg)
--- NOTE | 2022-09-30 22:01 | Emergency Department Note ---
ED Visit Note Received this patient in signout. Overdose on Zoloft. Medically cleared and see prior notes and labs for details. Wishing for inpatient voluntary mental health treatment. Bed search was initiated by case management. EKG from earlier today shows a sinus tachycardia 113 bpm without PVC or PAC with nonspecific T wave changes and a QTC of 416. No acute ST segment elevation is noted. Accepted to [facility] [address]. for further inpatient psychiatric care on a 201. .
[2022-10-01] MEDS ORDERED: SODIUM CHLORIDE 0.65% NA SOLN 45 ML (OCEAN) PRN (01:11)
[2022-10-01] MEDS ORDERED: hydrOXYzine HCl 25 MG TAB PO PRN ×2 (01:11)
[2022-10-01] MEDS ORDERED: ALUMINUM/MAGNESIUM SUSP 30 ML UDC PO PRN (01:11)
[2022-10-01] MEDS ORDERED: ACETAMINOPHEN 325 MG TAB PO PRN (01:11)
[2022-10-01] MEDS ORDERED: BISMUTH SUBSALICYLATE LIQD 236 ML PO PRN (01:11)
[2022-10-01] MEDS ORDERED: MAGNESIUM HYDROXIDE SUSP 30 ML UDC PO PRN (01:11)
[2022-10-01] MEDS ORDERED: Flu Vaccine (Flucelvax) 0.5mL SYR **Egg-Free IM ONE (04:45)
--- NOTE | 2022-10-01 08:40 | History & Physical ---
Date of Service October 01, 2022 Impression / Recommendations Impression Khris is a 22 year old with a history of anxiety who was admitted following a suicide attempt in the context of worsening anxiety and depression driven by academic difficulties and feeling trapped by the prospect of academic failure/withdrawal. Diagnostically consistent with major depressive disorder and generalized anxiety disorder. There is a possibility of past episodes of hypomania and he has a family history of BPAD vs normal developmental late night studying sessions as no other risk taking behaviors or consequences from these periods of time. The patient is deemed unstable and requires psychiatric ho spitalization for diagnostic clarification, safety and stabilization, medication management and development of further coping skills. Discussed medication treatment options in detail including SSRIs, mood stabilizers, anxiety medication. Discussed risks, benefits and alternatives. Patient would like to start and consented to escitalopram for MDD and ROMAN. Reviewed side effects including but not limited to: GI, DICKINSON, sexual side effects, potential for bringing on pablo/hypomania and counseled on black box warning of potential for emergence of or increased SI and need to let staff know should th is occur or should they feel unsafe. Will hold off on starting this until at least tomorrow as still showing some mild signs of effects from sertraline ingestion. (1) SSRI overdose: (2) Major depressive disorder, single episode, severe with anxious distress: (3) ROMAN (generalized anxiety disorder): Plan 10/01/22: The patient was admitted to the [facility] ([facility]) on q15 min checks (behavioral with suicide precautions) for safety. The patient will participate in group, recreational, and milieu therapies and will be offered additional individual and family sessions as clinically appropriate. -Consider starting escitalopram 5mg tomorrow Inventory Assets Strengths: supportive relationships, willing to get treatment, intelligent Needs: safety and stabilization, medication adjustment, additional coping skills, increased outpatient services Suicide Risk Level Suicide Risk Level: High-Moderate (q15 min suicide checks) (High-Moderate due to severe depression with SI with attempt prior to admission but feels safe in the hospital, able to safety contract and agrees to let nursing/staff know should they develop plan, intent or feel unable to remain safe. 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 Chief Complaint "I'm had all these things I was passionate about before and now it's just been miserable and stressful". History of Present Illness Khris presents for psychiatric admission for worsening depression, anxiety and suicide attempt via ingestion of sertraline about 20 tabs in the context of multiple psychosocial stressors including academic difficulties, burnout and social isolation. He's always been a great student and has been struggling academically for the first time and notes it's intimidating to be around some many other high achieving peers. 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 He had some sertraline that a previous girlfriend gave him a two years ago and he "kept the bottle for this occasion" in case he needed it. He then took the sertraline tabs over the course of Wednesday night into Wednesday morning as a suicide attempt and was responding to his parents calls so his mom altered emergency services requesting a wellness check. 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 He notes that since about 20 years ago he's had "this plan" of suicide as a "parachute" in case he failed or did not do well academically as a way to cope. He feels ambivalent about sruviving the attempt and "a lot of guilt" because "I couldn't even do it right" and the impact it's had on his family. He is not currently prescribed any psychiatric medications. Psychiatric ROS notable for history of going a few days with little sleep 2-3 hours, had increased energy, felt very productive, got a lot done. This lasted about 3-4 days and has occurred a few times on different occasions. No psychosis, PTSD, OCD nor eating disorder. No history of self-harm. Past Psychiatric History Current Psychiatric Diagnosis: anxiety Outpatient Services: none, hx therapist in 2020 for anxiety Previous Psych Admissions: n/a Do You Have Access To A Gun?: No History of Previous Suicide Attempt: No Past Medication Trials: n/a Past Head Trauma/Neuro History History of Concussion/Seizure: No Allergies Allergy/AdvReac Type Severity Reaction Status Date / Time No Known Allergies Allergy Verified 08/31/22 10:55 Home Medications Medication Instructions Recorded Confirmed Type acetaminophen 325 mg capsule 325 mg PO QID PRN Pain 08/31/22 09/30/22 History (Tylenol) Family History Family History of: Alcoholism/Drug Abuse (alcohol use d/o on maternal side, opioid use d/o on paternal side), Bipolar (maternal grandmother) and Suicide Completion (paternal great uncle) Alcohol History Hx of Alcohol Use Over the Past 12 Months: Yes (occassional/social) AUDIT Total Score: 2 hard seltzers occasionally Smoking Use Have You Smoked or Used Tobacco Products in the Last 30 Days: No tobacco type: e-cigarettes Smoking Status: Current every day smoker Smoking packs per day: 0.9 Substance History Hx of Prescription Med Misuse Over the Past 12 Months: No Hx of Over the Counter Med Misuse Over the Past 12 Months: No Hx of Inhalent Misuse Over the Past 12 Months: No Hx of Organic Substance Use Over the Past 12 Months: No Hx of Illegal Substances/Street Drug Use Over Past 12 Months: No Problems as a Result of Past Substance Use: None Identified Personal History Living Arrangements: Apartment Childhood: From [place], went to undergraduate school there. Parents are . Has an older brother, two younger brothers and a younger sister. 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[place] ) Marital Status: Single Number Of Children: 0 Beliefs That Will Affect Care: None Current Legal Problems: No Hx Legal Problems: No Hx Traumatic Life Events: No Patient History Medical History Abdominal wall pain in right upper quadrant Anxiety Cholelithiasis Gallstone pancreatitis History of COVID-19 09/2021 > mild symptoms, resolved Pancreatitis 08/06/22 Surgical History H/O removal of cyst History of ERCP History of esophagogastroduodenoscopy History of hernia surgery Hx laparoscopic cholecystectomy (08/19/22) Robotic Assisted Laparoscopic Cholecystectomy - Stefano Damon DO, FACS Family History Grandmother Cancer Social History Smoking Status: Current every day smoker Tobacco Type: E-cigarettes / Vaping Second Hand Exposure: No; Hx Alcohol Use: No Hx Substance Use: No Preferred Language: [place] Communication Ability: Effective 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 Small Products Required: No Beliefs That Will Affect Care: None marital status: Single Current Living Situation: Alone current occupational status: student How many Children do You have: 0 Feels Safe at Home: Yes during the past year weight has: remained stable Assistive Devices: Glasses Review of Systems Review of Systems: All systems reviewed & are unremarkable except as noted in HPI & below (bilateral tremor, pupils slightly dilated) Physical Exam Psychiatric: Orientation: alert and oriented x 3 Apperance: appropriately dressed and appropriately groomed Eye Contact: good eye contact Motor Behavior: steady gait and station and + tremor Speech: normal rate/rhythm/volume of speech Affect: + depressed affect and + anxious affect Mood: + depressed mood and + anxious mood Thought Process: goal directed thought process Thought Content: reality based without delusions Suicidal Thoughts: denies suicidal plan and denies suicidal intent; + reports suicidal thoughts Homicidal Thoughts: denies homicidal thoughts Hallucinations: no auditory hallucinations and no visual hallucinations Cognition: recent memory grossly intact, remote memory grossly intact, attention grossly intact and language grossly intact Estimated Intelligence: consistent with education level Insight: + fair insight Judgement: + limited judgement Vital Signs (Past 24 Hours): Last Vital Signs Temp 36.7 C 10/01/22 06:37 Pulse 94 H 10/01/22 06:38 Resp 18 10/01/22 06:37 BP 103/51 L 10/01/22 06:38 Pulse Ox 95 09/30/22 23:30 O2 Del Method 09/30/22 23:30 O2 Flow Rate 0 09/30/22 18:24 Exam Statement: A physical exam was performed in the ED by Dr. Batista for the purposes of medical clearance. I accept that physical as correct and adequate for the purposes of the inpatient physical exam. Results & Data ([facility]) Laboratory Results Laboratory Results - last 24 hr 09/30/22 09/30/22 09/30/22 18:31 18:31 18:31 WBC 13.60 H RBC 4.74 Hgb 14.0 Hct 39.8 L MCV 84.0 MCH 29.5 MCHC 35.2 RDW Std Deviation 38.6 RDW Coeff of Gabriella 12.6 Plt Count 223 MPV 9.2 L Immature Gran % (Auto) 0.3 Neut % (Auto) 85.3 Lymph % (Auto) 5.9 [place] % (Auto) 8.2 Eos % (Auto) 0.0 Baso % (Auto) 0.3 Neut # (Auto) 11.61 H Lymph # (Auto) 0.80 L [place] # (Auto) 1.11 H Eos # (Auto) 0.00 Baso # (Auto) 0.04 Immature Gran # (Auto) 0.04 H Sodium 136 Potassium 4.1 Chloride 103 Carbon Dioxide 21 Anion Gap 12 H BUN 15 Creatinine 0.69 Est Cr Clr Drug Dosing Not Reportable Est GFR ( Amer) > 150.0 Est GFR (Non-Af Amer) 132.9 BUN/Creatinine Ratio 21.7 H Glucose 110 H Calcium 9.5 Total Bilirubin 2.5 H AST 16 ALT 19 Alkaline Phosphatase 58 Total Protein 7.5 Albumin 4.9 Globulin 2.6 Albumin/Globulin Ratio 1.9 Lipase 51 TSH 1.335 Urine Color Urine Appearance Urine pH Ur Specific [place] Urine Protein Urine Glucose (UA) Urine Ketones Urine Blood Urine Nitrite Urine Bilirubin Urine Urobilinogen Ur Leukocyte Esterase Urine WBC (Auto) Urine RBC (Auto) U Hyaline Cast (Auto) U Epithel Cells (Auto) Urine Bacteria (Auto) Salicylates Urine Opiates Screen Ur Methadone, Qual Acetaminophen Urine Barbiturates Ur Phencyclidine (PCP) U Amphetamin/Meth Scrn MDMA (Ecstasy) Screen U OH-Alprazolam Confrm U Benzodiazepines Scrn 7-Amino Clonazepam Ur Nordiazepam Confirm U OH-ethylflurazepam U Lorazepam Cnf GC/MS U Oxazepam Confm GC/MS Ur Temazepam Confirm U OH-Triazolam Confirm U OH-Midazolam Confirm Ur Cocaine Metabolite U Marijuana (THC) Screen Drug Screen Comment Ethyl Alcohol mg/dL SARS-CoV-2, RNA, NAAT 09/30/22 09/30/22 09/30/22 18:31 18:31 18:55 WBC RBC Hgb Hct MCV MCH MCHC RDW Std Deviation RDW Coeff of Gabriella Plt Count MPV Immature Gran % (Auto) Neut % (Auto) Lymph % (Auto) [place] % (Auto) Eos % (Auto) Baso % (Auto) Neut # (Auto) Lymph # (Auto) [place] # (Auto) Eos # (Auto) Baso # (Auto) Immature Gran # (Auto) Sodium Potassium Chloride Carbon Dioxide Anion Gap BUN Creatinine Est Cr Clr Drug Dosing Est GFR ( Amer) Est GFR (Non-Af Amer) BUN/Creatinine Ratio Glucose Calcium Total Bilirubin AST ALT Alkaline Phosphatase Total Protein Albumin Globulin Albumin/Globulin Ratio Lipase TSH Urine Color Dark Yellow Urine Appearance Clear Urine pH 6.5 Ur Specific [place] 1.034 H Urine Protein 1+ H Urine Glucose (UA) Negative Urine Ketones Trace H Urine Blood Negative Urine Nitrite Negative Urine Bilirubin Negative Urine Urobilinogen Negative Ur Leukocyte Esterase Negative Urine WBC (Auto) 1-5 Urine RBC (Auto) 0-4 U Hyaline Cast (Auto) 1-5 U Epithel Cells (Auto) 5-10 H Urine Bacteria (Auto) Negative Salicylates < 3.0 L Urine Opiates Screen Ur Methadone, Qual Acetaminophen < 3 L Urine Barbiturates Ur Phencyclidine (PCP) U Amphetamin/Meth Scrn MDMA (Ecstasy) Screen U OH-Alprazolam Confrm U Benzodiazepines Scrn 7-Amino Clonazepam Ur Nordiazepam Confirm U OH-ethylflurazepam U Lorazepam Cnf GC/MS U Oxazepam Confm GC/MS Ur Temazepam Confirm U OH-Triazolam Confirm U OH-Midazolam Confirm Ur Cocaine Metabolite U Marijuana (THC) Screen Drug Screen Comment Ethyl Alcohol mg/dL < 10.0 SARS-CoV-2, RNA, NAAT 09/30/22 09/30/22 09/30/22 18:55 18:55 Unknown WBC RBC Hgb Hct MCV MCH MCHC RDW Std Deviation RDW Coeff of Gabriella Plt Count MPV Immature Gran % (Auto) Neut % (Auto) Lymph % (Auto) [place] % (Auto) Eos % (Auto) Baso % (Auto) Neut # (Auto) Lymph # (Auto) [place] # (Auto) Eos # (Auto) Baso # (Auto) Immature Gran # (Auto) Sodium Potassium Chloride Carbon Dioxide Anion Gap BUN Creatinine Est Cr Clr Drug Dosing Est GFR ( Amer) Est GFR (Non-Af Amer) BUN/Creatinine Ratio Glucose Calcium Total Bilirubin AST ALT Alkaline Phosphatase Total Protein Albumin Globulin Albumin/Globulin Ratio Lipase TSH Urine Color Urine Appearance Urine pH Ur Specific [place] Urine Protein Urine Glucose (UA) Urine Ketones Urine Blood Urine Nitrite Urine Bilirubin Urine Urobilinogen Ur Leukocyte Esterase Urine WBC (Auto) Urine RBC (Auto) U Hyaline Cast (Auto) U Epithel Cells (Auto) Urine Bacteria (Auto) Salicylates Urine Opiates Screen Neg Ur Methadone, Qual Neg Acetaminophen Urine Barbiturates Neg Ur Phencyclidine (PCP) Neg U Amphetamin/Meth Scrn Neg MDMA (Ecstasy) Screen Neg U OH-Alprazolam Confrm Pending U Benzodiazepines Scrn Pos H 7-Amino Clonazepam Pending Ur Nordiazepam Confirm Pending U OH-ethylflurazepam Pending U Lorazepam Cnf GC/MS Pending U Oxazepam Confm GC/MS Pending Ur Temazepam Confirm Pending U OH-Triazolam Confirm Pending U OH-Midazolam Confirm Pending Ur Cocaine Metabolite Neg U Marijuana (THC) Screen Neg Drug Screen Comment Pending Ethyl Alcohol mg/dL SARS-CoV-2, RNA, NAAT NEGATIVE Current Inpatient Medications Current Inpatient Medications: Current Inpatient Medications Acetaminophen (Acetaminophen 325 Mg Tab) 650 mg PO Q4H PRN PRN Reason: Headache or Minor Fever Stop: 10/31/22 01:10 Al Hydrox/Mg Hydrox/Simethicone (Aluminum/Magnesium Susp 30 Ml Udc) 30 ml PO Q4H PRN PRN Reason: GI Upset Stop: 10/31/22 01:10 Bismuth Subsalicylate (Bismuth Subsalicylate Liqd 236 Ml) 15 ml PO PRN PRN PRN Reason: Loose Stool Stop: 10/31/22 01:10 Hydroxyzine HCl (Hydroxyzine Hcl 25 Mg Tab) 50 mg PO HSZ PRN PRN Reason: Insomnia Stop: 10/31/22 01:10 Hydroxyzine HCl (Hydroxyzine Hcl 25 Mg Tab) 25 mg PO Q4H PRN PRN Reason: Anxiety Stop: 10/31/22 01:10 Magnesium Hydroxide (Magnesium Hydroxide Susp 30 Ml Udc) 30 ml PO DAILY PRN PRN Reason: Constipation Stop: 10/31/22 01:10 Miscellaneous (Remove Nicoderm Patch) 1 each N/A DAILY@0859 [facility] Stop: 10/31/22 08:58 Nicotine (Nicotine 14 Mg/24 Hr Patch) 14 mg TD QAM [facility] Stop: 10/31/22 08:59 Nicotine Polacrilex (Nicotine Polacrilex 2 Mg Gum) 1 piece MT PRN PRN PRN Reason: Nicotine Withdrawal Stop: 10/31/22 01:10 Sodium Chloride (Sodium Chloride 0.65% Na Soln 45 Ml ([place])) 1 - 2 sprays NA PRN PRN PRN Reason: Nasal Dryness/Congestion Stop: 10/31/22 01:10
[2022-10-01] MEDS: NICOTINE 14 MG/24 HR PATCH TD SCH (11:00)
--- NOTE | 2022-10-01 19:05 | Electrocardiogram Report ---
Test Reason : Blood Pressure : / mmHG Vent. Rate : 113 BPM Atrial Rate : 113 BPM P-R Int : 142 ms QRS Dur : 082 ms QT Int : 304 ms P-R-T Axes : 083 030 082 degrees QTc Int : 416 ms Sinus tachycardia Biatrial enlargement Nonspecific T wave abnormality Abnormal ECG When compared with ECG of 06-AUG-2022 16:44, Premature ventricular complexes are no longer Present Nonspecific T wave abnormality now evident in Lateral leads Confirmed by John Lezama ([id number]) on 10/01/2022 7:04:18 PM Referred By: REFERRED SELF Confirmed By:Tyrell Lezama
[2022-10-02 06:44] VITALS: O2SAT 98
[2022-10-02] MEDS: NICOTINE 14 MG/24 HR PATCH TD SCH (08:10)
--- NOTE | 2022-10-02 16:38 | Psychiatric Progress Note ---
Date of Service October 02, 2022 Impression / Recommendations Impression Khris is a 22 year old with a history of anxiety who was admitted following a suicide attempt in the context of worsening anxiety and depression driven by academic difficulties and feeling trapped by the prospect of academic failure/withdrawal. Diagnostically consistent with major depressive disorder and generalized anxiety disorder. There is a possibility of past episodes of hypomania and he has a family history of BPAD vs normal developmental late night studying sessions as no other risk taking behaviors or consequences from these periods of time. The patient is deemed unstable and requires psychiatric ho spitalization for diagnostic clarification, safety and stabilization, medication management and development of further coping skills. 10/02/22: remains depressed and still showing some symptoms of sertraline overdose but tremor improving. Once symptoms resolve he consents to starting escitalopram, will defer decision to start until he is reassessed tomorrow given ongoing tremor today. (1) SSRI overdose: (2) Major depressive disorder, single episode, severe with anxious distress: (3) ROMAN (generalized anxiety disorder): Plan 10/02/22: Still with tremor so will hold off on starting escitalopram until reassessed tomorrow. 10/01/22: The patient was admitted to the [facility] ([facility] unit) on q15 min checks (behavioral with suicide precautions) for safety. The patient will participate in group, recreational, and milieu therapies and will be offered additional individual and family sessions as clinically appropriate. -Consider starting escitalopram 5mg tomorrow Inventory Assets Strengths: supportive relationships, willing to get treatment, intelligent Needs: safety and stabilization, medication adjustment, additional coping skills, increased outpatient services Suicide Risk Level Suicide Risk Level: High-Moderate (q15 min suicide checks) (High-Moderate due to severe depression with SI with attempt prior to admission but feels safe in the hospital, able to safety contract and agrees to let nursing/staff know should they develop plan, intent or feel unable to remain safe. 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 Chief Complaint "I'm ok". Review of Systems Sleep Information Total Hours of Sleep: 7.5 Sleep Comments: Meal Information Percent Meal Consumed - Breakfast: 100 Percent Meal Consumed - Lunch: 100 Percent Meal Consumed - Dinner: 100 Subjective Subjective Patient was seen & assessed and interval progress reviewed with treatment team nursing and social work. Adjusting to inpatient setting, attending groups and finding these helpful. Slept better last night. Tremor lessening today, pupil dilation improved. Has some muscle soreness in neck and legs but feels this is improving. Denies any other physical issues nor concerns. Still having some SI. 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 Interested in starting escitalopram once serotonin excess symptoms fully resolve. Physical Exam Psychiatric Orientation: alert and oriented x 3 Apperance: appropriately dressed and appropriately groomed Eye Contact: good eye contact Motor Behavior: steady gait and station and + tremor (lessened significantly ) Speech: normal rate/rhythm/volume of speech Affect: + depressed affect and + anxious affect Mood: + depressed mood and + anxious mood Thought Process: goal directed thought process Thought Content: reality based without delusions Suicidal Thoughts: denies suicidal plan and denies suicidal intent; + reports suicidal thoughts Homicidal Thoughts: denies homicidal thoughts Hallucinations: no auditory hallucinations and no visual hallucinations Cognition: recent memory grossly intact, remote memory grossly intact, attention grossly intact and language grossly intact Estimated Intelligence: consistent with education level Insight: + fair insight Judgement: + limited judgement Vital Signs (Past 24 Hours) Last Vital Signs Temp 37.2 C 10/02/22 06:00 Pulse 84 10/02/22 06:43 Resp 98 H 10/02/22 06:00 BP 100/61 10/02/22 06:43 Pulse Ox 98 10/02/22 06:00 O2 Del Method 10/02/22 06:00 O2 Flow Rate 0 09/30/22 18:24 Results & Data ([facility]) Current Inpatient Medications Current Inpatient Medications: Current Inpatient Medications Acetaminophen (Acetaminophen 325 Mg Tab) 650 mg PO Q4H PRN PRN Reason: Headache or Minor Fever Stop: 10/31/22 01:10 Al Hydrox/Mg Hydrox/Simethicone (Aluminum/Magnesium Susp 30 Ml Udc) 30 ml PO Q4H PRN PRN Reason: GI Upset Stop: 10/31/22 01:10 Bismuth Subsalicylate (Bismuth Subsalicylate Liqd 236 Ml) 15 ml PO PRN PRN PRN Reason: Loose Stool Stop: 10/31/22 01:10 Hydroxyzine HCl (Hydroxyzine Hcl 25 Mg Tab) 50 mg PO HSZ PRN PRN Reason: Insomnia Stop: 10/31/22 01:10 Hydroxyzine HCl (Hydroxyzine Hcl 25 Mg Tab) 25 mg PO Q4H PRN PRN Reason: Anxiety Stop: 10/31/22 01:10 Magnesium Hydroxide (Magnesium Hydroxide Susp 30 Ml Udc) 30 ml PO DAILY PRN PRN Reason: Constipation Stop: 10/31/22 01:10 Miscellaneous (Remove Nicoderm Patch) 1 each N/A DAILY@0859 [facility] Stop: 10/31/22 08:58 Last Admin: 10/02/22 08:11 Dose: 1 each Nicotine (Nicotine 14 Mg/24 Hr Patch) 14 mg TD QAM [facility] Stop: 10/31/22 08:59 Last Admin: 10/02/22 08:10 Dose: 14 mg Nicotine Polacrilex (Nicotine Polacrilex 2 Mg Gum) 1 piece MT PRN PRN PRN Reason: Nicotine Withdrawal Stop: 10/31/22 01:10 Sodium Chloride (Sodium Chloride 0.65% Na Soln 45 Ml ([place])) 1 - 2 sprays NA PRN PRN PRN Reason: Nasal Dryness/Congestion Stop: 10/31/22 01:10 Mental Health & Subst Abuse Tx Therapist Name of Therapist: None Director Of Media Name of Director Of Media: None Post Discharge Appointments Primary Care Physician Name Of Family Doctor: [facility]
[2022-10-02] MEDS: NICOTINE POLACRILEX 2 MG GUM MT PRN (22:56)
[2022-10-03 02:17] LABS: 7-Aminoclonaz, Confirm NEGATIVE ng/mL (<25); Hydro-Alp Ur, GC/MS NEGATIVE ng/mL (<25); Hydroxyethylflurazepam, Conf NEGATIVE ng/mL (<50); Hydroxymidazolam Ur, GC/MS NEGATIVE ng/mL (<50); Hydroxytriazolam NEGATIVE ng/mL (<50); Lorazepam, Ur GC/MS NEGATIVE ng/mL (<50); Nordiazepam, Confirm NEGATIVE ng/mL (<50); Oxazepam Ur, GC/MS NEGATIVE ng/mL (<50); Temazepam, Confirm NEGATIVE ng/mL (<50)
[2022-10-03] MEDS: NICOTINE 14 MG/24 HR PATCH TD SCH (08:12)
--- NOTE | 2022-10-03 14:00 | Psychiatric Progress Note ---
Date of Service October 03, 2022 Impression / Recommendations Impression Khris is a 22 year old with a history of anxiety who was admitted following a suicide attempt in the context of worsening anxiety and depression driven by academic difficulties and feeling trapped by the prospect of academic failure/withdrawal. Diagnostically consistent with major depressive disorder and generalized anxiety disorder. There is a possibility of past episodes of hypomania and he has a family history of BPAD vs normal developmental late night studying sessions as no other risk taking behaviors or consequences from these periods of time. The patient is deemed unstable and requires psychiatric ho spitalization for diagnostic clarification, safety and stabilization, medication management and development of further coping skills. 10/03/22: ongoing depression and anxiety, continues to desire trial of Lexapro as discussed with Dr. Albarran. (1) SSRI overdose: (2) Major depressive disorder, single episode, severe with anxious distress: (3) ROMAN (generalized anxiety disorder): Plan 10/03/22: Risks/benefits/alternatives reviewed re: antidepressants for the treatment of depression and/or anxiety. Discussion included but was not limited to FDA warnings re: suicidality in adolescents and young adults. The patient agreed to a trial of Lexapro 5 mg daily. 10/02/22: Still with tremor so will hold off on starting escitalopram until reassessed tomorrow. 10/01/22: The patient was admitted to the [facility] ([facility]) on q15 min checks (behavioral with suicide precautions) for safety. The patient will participate in group, recreational, and milieu therapies and will be offered additional individual and family sessions as clinically appropriate. -Consider starting escitalopram 5mg tomorrow Inventory Assets Strengths: supportive relationships, willing to get treatment, intelligent Needs: safety and stabilization, medication adjustment, additional coping skills, increased outpatient services Suicide Risk Level Suicide Risk Level: High-Moderate (q15 min suicide checks) Risk Factors Assessment Male: Yes : Yes Do You Have Access To A Gun?: No Health Problems: No Mental Health Diagnoses: Yes Substance Use Disorders: No Previous Attempt: Yes Family History of Suicide: Yes Previous Psychiatric Hospitalization: No Protective Factors Assessment 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 Chief Complaint "I still get in my head about next steps". Review of Systems Sleep Information Total Hours of Sleep: 6 Meal Information Percent Meal Consumed - Breakfast: 100 Percent Meal Consumed - Lunch: 100 Percent Meal Consumed - Dinner: 100 Subjective Subjective Patient was seen & assessed and interval progress reviewed with nursing and social work. Tremor is still present but resolving. Pupils not baseline but no photosensitivity. Patient expressed guilt for upsetting his family. Plans to take time off from academics. Physical Exam Psychiatric Orientation: alert and oriented x 3 Apperance: appropriately dressed and appropriately groomed Eye Contact: good eye contact Motor Behavior: steady gait and station and + tremor (lessened significantly ) Speech: normal rate/rhythm/volume of speech Affect: + depressed affect and + anxious affect Mood: + depressed mood and + anxious mood Thought Process: goal directed thought process Thought Content: reality based without delusions Suicidal Thoughts: denies suicidal thoughts (when busy with activities.), denies suicidal plan and denies suicidal intent Homicidal Thoughts: denies homicidal thoughts Hallucinations: no auditory hallucinations and no visual hallucinations Cognition: recent memory grossly intact, remote memory grossly intact, attention grossly intact and language grossly intact Estimated Intelligence: consistent with education level Insight: + fair insight Judgement: + limited judgement Vital Signs (Past 24 Hours) Last Vital Signs Temp 37.4 C 10/03/22 06:00 Pulse 77 10/03/22 06:45 Resp 18 10/03/22 06:00 BP 106/67 10/03/22 06:45 Pulse Ox 98 10/03/22 06:00 O2 Del Method 10/03/22 06:00 O2 Flow Rate 0 09/30/22 18:24 Results & Data ([facility]) Laboratory Results Laboratory Results - last 24 hr 09/30/22 18:55 U OH-Alprazolam Confrm NEGATIVE 7-Amino Clonazepam NEGATIVE Ur Nordiazepam Confirm NEGATIVE U OH-ethylflurazepam NEGATIVE U Lorazepam Cnf GC/MS NEGATIVE U Oxazepam Confm GC/MS NEGATIVE Ur Temazepam Confirm NEGATIVE U OH-Triazolam Confirm NEGATIVE U OH-Midazolam Confirm NEGATIVE Drug Screen Comment SEE NOTE Current Inpatient Medications Current Inpatient Medications: Current Inpatient Medications Acetaminophen (Acetaminophen 325 Mg Tab) 650 mg PO Q4H PRN PRN Reason: Headache or Minor Fever Stop: 10/31/22 01:10 Al Hydrox/Mg Hydrox/Simethicone (Aluminum/Magnesium Susp 30 Ml Udc) 30 ml PO Q4H PRN PRN Reason: GI Upset Stop: 10/31/22 01:10 Bismuth Subsalicylate (Bismuth Subsalicylate Liqd 236 Ml) 15 ml PO PRN PRN PRN Reason: Loose Stool Stop: 10/31/22 01:10 Escitalopram Oxalate (Escitalopram Oxalate 10 Mg Tab) 5 mg PO QAM [facility] Stop: 11/03/22 08:59 Hydroxyzine HCl (Hydroxyzine Hcl 25 Mg Tab) 50 mg PO HSZ PRN PRN Reason: Insomnia Stop: 10/31/22 01:10 Hydroxyzine HCl (Hydroxyzine Hcl 25 Mg Tab) 25 mg PO Q4H PRN PRN Reason: Anxiety Stop: 10/31/22 01:10 Magnesium Hydroxide (Magnesium Hydroxide Susp 30 Ml Udc) 30 ml PO DAILY PRN PRN Reason: Constipation Stop: 10/31/22 01:10 Miscellaneous (Remove Nicoderm Patch) 1 each N/A DAILY@[facility]859 [facility] Stop: 10/31/22 08:58 Last Admin: 10/03/22 08:12 Dose: 1 each Nicotine (Nicotine 14 Mg/24 Hr Patch) 21 mg TD [facility] Stop: 11/03/22 08:59 Nicotine Polacrilex (Nicotine Polacrilex 2 Mg Gum) 1 piece MT PRN PRN PRN Reason: Nicotine Withdrawal Stop: 10/31/22 01:10 Last Admin: 10/02/22 22:56 Dose: 1 piece Sodium Chloride (Sodium Chloride 0.65% Na Soln 45 Ml ([place])) 1 - 2 sprays NA PRN PRN PRN Reason: Nasal Dryness/Congestion Stop: 10/31/22 01:10 Mental Health & Subst Abuse Tx Therapist Name of Therapist: None Control Panel Tester Name of Control Panel Tester: None Post Discharge Appointments Primary Care Physician Name Of Family Doctor: Kelli
[2022-10-03] MEDS: NICOTINE POLACRILEX 2 MG GUM MT PRN (17:58)
[2022-10-04] MEDS ORDERED: NICOTINE 14 MG/24 HR PATCH TD SCH (09:00)
[2022-10-04] MEDS: NICOTINE 21 MG/24 HR TDSY TD SCH (09:07)
[2022-10-04] MEDS: ESCITALOPRAM OXALATE 10 MG TAB PO SCH (09:11)
--- NOTE | 2022-10-04 13:27 | Psychiatric Progress Note ---
Date of Service October 04, 2022 Impression / Recommendations Impression Khris is a 22 year old with a history of anxiety who was admitted following a suicide attempt in the context of worsening anxiety and depression driven by academic difficulties and feeling trapped by the prospect of academic failure/withdrawal. Diagnostically consistent with major depressive disorder and generalized anxiety disorder. There is a possibility of past episodes of hypomania and he has a family history of BPAD vs normal developmental late night studying sessions as no other risk taking behaviors or consequences from these periods of time. The patient is deemed unstable and requires psychiatric ho spitalization for diagnostic clarification, safety and stabilization, medication management and development of further coping skills. 10/04/22: ongoing depression and anxiety, residuals of OD interfering with current med trial (can't increase) (1) SSRI overdose: (2) Major depressive disorder, single episode, severe with anxious distress: (3) ROMAN (generalized anxiety disorder): Plan 10/04/22: continue Lexapro 5 mg. 10/03/22: Risks/benefits/alternatives reviewed re: antidepressants for the treatment of depression and/or anxiety. Discussion included but was not limited to FDA warnings re: suicidality in adolescents and young adults. The patient agreed to a trial of Lexapro 5 mg daily. 10/02/22: Still with tremor so will hold off on starting escitalopram until reassessed tomorrow. 10/01/22: The patient was admitted to the [facility] ([facility]) on q15 min checks (behavioral with suicide precautions) for safety. The patient will participate in group, recreational, and milieu therapies and will be offered additional individual and family sessions as clinically appropriate. -Consider starting escitalopram 5mg tomorrow Inventory Assets Strengths: supportive relationships, willing to get treatment, intelligent Needs: safety and stabilization, medication adjustment, additional coping skills, increased outpatient services Suicide Risk Level Suicide Risk Level: High-Moderate (q15 min suicide checks) Suicide Risk Level Comments: High-Moderate due to severe depression with SI with plan prior to admission but feels safe in the hospital, able to safety contract and agrees to let nursing/staff know should they develop plan, intent or feel unable to remain safe. 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 Chief Complaint "I feel a little unstead at times" (referring to his vision, worse yesterday) Review of Systems Sleep Information Total Hours of Sleep: 6.5 Meal Information Percent Meal Consumed - Breakfast: 100 Percent Meal Consumed - Lunch: 90 Percent Meal Consumed - Dinner: 100 Subjective Subjective Patient was seen & assessed and interval progress reviewed with nursing and social work. Occasional issues with occular accommodation. Feels tremor improving. Now says undecided about time away from school, all or nothing thinking about his email. Physical Exam Psychiatric Orientation: alert and oriented x 3 Apperance: appropriately dressed and appropriately groomed Eye Contact: good eye contact Motor Behavior: steady gait and station and + tremor (lessened significantly ) Speech: normal rate/rhythm/volume of speech Affect: + depressed affect and + anxious affect Mood: + depressed mood and + anxious mood Thought Process: goal directed thought process Thought Content: reality based without delusions Suicidal Thoughts: denies suicidal thoughts (when busy with activities.), denies suicidal plan and denies suicidal intent Homicidal Thoughts: denies homicidal thoughts Hallucinations: no auditory hallucinations and no visual hallucinations Cognition: attention grossly intact and language grossly intact Vital Signs (Past 24 Hours) Last Vital Signs Temp 36.6 C 10/04/22 06:34 Pulse 79 10/04/22 06:35 Resp 16 10/04/22 06:34 BP 102/66 10/04/22 06:35 Pulse Ox 98 10/03/22 06:00 O2 Del Method 10/03/22 06:00 O2 Flow Rate 0 09/30/22 18:24 Results & Data ([facility]) Current Inpatient Medications Current Inpatient Medications: Current Inpatient Medications Acetaminophen (Acetaminophen 325 Mg Tab) 650 mg PO Q4H PRN PRN Reason: Headache or Minor Fever Stop: 10/31/22 01:10 Al Hydrox/Mg Hydrox/Simethicone (Aluminum/Magnesium Susp 30 Ml Udc) 30 ml PO Q4H PRN PRN Reason: GI Upset Stop: 10/31/22 01:10 Bismuth Subsalicylate (Bismuth Subsalicylate Liqd 236 Ml) 15 ml PO PRN PRN PRN Reason: Loose Stool Stop: 10/31/22 01:10 Escitalopram Oxalate (Escitalopram Oxalate 10 Mg Tab) 5 mg PO QAM I[facility] Stop: 11/03/22 08:59 Last Admin: 10/04/22 09:11 Dose: 5 mg Hydroxyzine HCl (Hydroxyzine Hcl 25 Mg Tab) 50 mg PO HSZ PRN PRN Reason: Insomnia Stop: 10/31/22 01:10 Hydroxyzine HCl (Hydroxyzine Hcl 25 Mg Tab) 25 mg PO Q4H PRN PRN Reason: Anxiety Stop: 10/31/22 01:10 Magnesium Hydroxide (Magnesium Hydroxide Susp 30 Ml Udc) 30 ml PO DAILY PRN PRN Reason: Constipation Stop: 10/31/22 01:10 Miscellaneous (Remove Nicoderm Patch) 1 each N/A DAILY@0859 [facility] Stop: 10/31/22 08:58 Last Admin: 10/04/22 09:16 Dose: 1 each Nicotine (Nicotine 21 Mg/24 Hr Tdsy) 21 mg TD QAM [facility] Stop: 11/03/22 08:59 Last Admin: 10/04/22 09:07 Dose: 21 mg Nicotine Polacrilex (Nicotine Polacrilex 2 Mg Gum) 1 piece MT PRN PRN PRN Reason: Nicotine Withdrawal Stop: 10/31/22 01:10 Last Admin: 10/03/22 17:58 Dose: 1 piece Sodium Chloride (Sodium Chloride 0.65% Na Soln 45 Ml ([place])) 1 - 2 sprays NA PRN PRN PRN Reason: Nasal Dryness/Congestion Stop: 10/31/22 01:10 Mental Health & Subst Abuse Tx Therapist Name of Therapist: None Predator Control Trapper Name of Predator Control Trapper: None Post Discharge Appointments Primary Care Physician Name Of Family Doctor: Kelli
[2022-10-04] MEDS: NICOTINE POLACRILEX 2 MG GUM MT PRN (18:00)
[2022-10-05] MEDS: ESCITALOPRAM OXALATE 10 MG TAB PO SCH (08:48)
[2022-10-05] MEDS: NICOTINE 21 MG/24 HR TDSY TD SCH (08:49)
--- NOTE | 2022-10-05 12:19 | Psychiatric Progress Note ---
Date of Service October 05, 2022 Impression / Recommendations Impression Khris is a 22 year old with a history of anxiety who was admitted following a suicide attempt in the context of worsening anxiety and depression driven by academic difficulties and feeling trapped by the prospect of academic failure/withdrawal. Diagnostically consistent with major depressive disorder and generalized anxiety disorder. There is a possibility of past episodes of hypomania and he has a family history of BPAD vs normal developmental late night studying sessions as no other risk taking behaviors or consequences from these periods of time. The patient is deemed unstable and requires psychiatric ho spitalization for diagnostic clarification, safety and stabilization, medication management and development of further coping skills. 10/05/22: slow improvement, ongoing tremor (1) SSRI overdose: (2) Major depressive disorder, single episode, severe with anxious distress: (3) ROMAN (generalized anxiety disorder): Plan 10/05/22: continue current med and tx plan, needs aftercare in [place]. 10/04/22: continue Lexapro 5 mg. 10/03/22: Risks/benefits/alternatives reviewed re: antidepressants for the treatment of depression and/or anxiety. Discussion included but was not limited to FDA warnings re: suicidality in adolescents and young adults. The patient agreed to a trial of Lexapro 5 mg daily. 10/02/22: Still with tremor so will hold off on starting escitalopram until reassessed tomorrow. 10/01/22: The patient was admitted to the [facility] ([facility] unit) on q15 min checks (behavioral with suicide precautions) for safety. The patient will participate in group, recreational, and milieu therapies and will be offered additional individual and family sessions as clinically appropriate. 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 Chief Complaint "family meeting went well". Review of Systems Sleep Information Total Hours of Sleep: 6.5 Meal Information Percent Meal Consumed - Breakfast: 100 Percent Meal Consumed - Lunch: 80 Percent Meal Consumed - Dinner: 100 Subjective Subjective Patient was seen & assessed and interval progress reviewed with treatment team. tremor is reportedly the same as yesterday. parents were supportive and they discussed ways/shared language to discuss suicide moving forward, etc. planning to return home with parents after discharge. Physical Exam Psychiatric Orientation: alert and oriented x 3 Apperance: appropriately dressed and appropriately groomed Eye Contact: good eye contact Motor Behavior: no abnormal motor movements Speech: normal rate/rhythm/volume of speech Affect: euthymic affect Mood: + depressed mood Thought Process: goal directed thought process Thought Content: reality based without delusions Suicidal Thoughts: denies suicidal thoughts Homicidal Thoughts: denies homicidal thoughts Hallucinations: no auditory hallucinations and no visual hallucinations Cognition: attention grossly intact and language grossly intact Estimated Intelligence: consistent with education level Vital Signs (Past 24 Hours) Last Vital Signs Temp 36.4 C L 10/05/22 06:43 Pulse 81 10/05/22 06:43 Resp 16 10/05/22 06:43 BP 110/67 10/05/22 06:43 Pulse Ox 98 10/03/22 06:00 O2 Del Method 10/03/22 06:00 O2 Flow Rate 0 09/30/22 18:24 Results & Data ([facility]) Current Inpatient Medications Current Inpatient Medications: Current Inpatient Medications Acetaminophen (Acetaminophen 325 Mg Tab) 650 mg PO Q4H PRN PRN Reason: Headache or Minor Fever Stop: 10/31/22 01:10 Al Hydrox/Mg Hydrox/Simethicone (Aluminum/Magnesium Susp 30 Ml Udc) 30 ml PO Q4H PRN PRN Reason: GI Upset Stop: 10/31/22 01:10 Bismuth Subsalicylate (Bismuth Subsalicylate Liqd 236 Ml) 15 ml PO PRN PRN PRN Reason: Loose Stool Stop: 10/31/22 01:10 Escitalopram Oxalate (Escitalopram Oxalate 10 Mg Tab) 5 mg PO QAM I[facility] Stop: 11/03/22 08:59 Last Admin: 10/05/22 08:48 Dose: 5 mg Hydroxyzine HCl (Hydroxyzine Hcl 25 Mg Tab) 50 mg PO HSZ PRN PRN Reason: Insomnia Stop: 10/31/22 01:10 Hydroxyzine HCl (Hydroxyzine Hcl 25 Mg Tab) 25 mg PO Q4H PRN PRN Reason: Anxiety Stop: 10/31/22 01:10 Magnesium Hydroxide (Magnesium Hydroxide Susp 30 Ml Udc) 30 ml PO DAILY PRN PRN Reason: Constipation Stop: 10/31/22 01:10 Miscellaneous (Remove Nicoderm Patch) 1 each N/A DAILY@0859 [facility] Stop: 10/31/22 08:58 Last Admin: 10/05/22 08:55 Dose: 1 each Nicotine (Nicotine 21 Mg/24 Hr Tdsy) 21 mg TD QAM [facility] Stop: 11/03/22 08:59 Last Admin: 10/05/22 08:49 Dose: 21 mg Nicotine Polacrilex (Nicotine Polacrilex 2 Mg Gum) 1 piece MT PRN PRN PRN Reason: Nicotine Withdrawal Stop: 10/31/22 01:10 Last Admin: 10/04/22 18:00 Dose: 1 piece Sodium Chloride (Sodium Chloride 0.65% Na Soln 45 Ml ([place])) 1 - 2 sprays NA PRN PRN PRN Reason: Nasal Dryness/Congestion Stop: 10/31/22 01:10 Mental Health & Subst Abuse Tx Therapist Name of Therapist: Please see attached list of therapists. Therapy Appointment Comment: Call to schedule an appointment. Project Manager/Team Coach Name of Project Manager/Team Coach: None Post Discharge Appointments Primary Care Physician Name Of Family Doctor: [facility] Date of Appointment with PCP: 10/12/22 Time of Appointment with PCP: 10 AM Provider Appointment Comment: [id number] [place] [address]
[2022-10-05] MEDS: NICOTINE POLACRILEX 2 MG GUM MT PRN (17:47)
[2022-10-06] MEDS: ESCITALOPRAM OXALATE 10 MG TAB PO SCH (09:15)
[2022-10-06] MEDS: NICOTINE 21 MG/24 HR TDSY TD SCH (09:16)
--- NOTE | 2022-10-06 15:28 | Psychiatric Progress Note ---
Date of Service October 06, 2022 Impression / Recommendations Impression Khris is a 22 year old with a history of anxiety who was admitted following a suicide attempt in the context of worsening anxiety and depression driven by academic difficulties and feeling trapped by the prospect of academic failure/withdrawal. Diagnostically consistent with major depressive disorder and generalized anxiety disorder. There is a possibility of past episodes of hypomania and he has a family history of BPAD vs normal developmental late night studying sessions as no other risk taking behaviors or consequences from these periods of time. 10/06/22: improving (1) SSRI overdose: (2) Major depressive disorder, single episode, severe with anxious distress: (3) ROMAN (generalized anxiety disorder): Plan 10/06/22: continue same, safety planning. 10/05/22: continue current med and tx plan, needs aftercare in [place]. 10/04/22: continue Lexapro 5 mg. 10/03/22: Risks/benefits/alternatives reviewed re: antidepressants for the treatment of depression and/or anxiety. Discussion included but was not limited to FDA warnings re: suicidality in adolescents and young adults. The patient agreed to a trial of Lexapro 5 mg daily. 10/02/22: Still with tremor so will hold off on starting escitalopram until reassessed tomorrow. 10/01/22: The patient was admitted to [facility]) on q15 min checks (behavioral with suicide precautions) for safety. The patient will participate in group, recreational, and milieu therapies and will be offered additional individual and family sessions as clinically appropriate. -Consider starting escitalopram 5mg tomorrow Inventory Assets Strengths: supportive relationships, willing to get treatment, intelligent Needs: safety and stabilization, medication adjustment, additional coping skills, increased outpatient services Suicide Risk Level Suicide Risk Level: Moderate (q15 min suicide checks) Risk Factors Assessment Male: Yes : Yes Do You Have Access To A Gun?: No Health Problems: No Mental Health Diagnoses: Yes Substance Use Disorders: No Previous Attempt: Yes Family History of Suicide: Yes Previous Psychiatric Hospitalization: No Protective Factors Assessment Employed: Yes ([employer] - [employer]) Stable Relationships: Yes Supportive Family: Yes Interval History Identifying Information 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 Chief Complaint "I feel good that logistics are worked out". Review of Systems Sleep Information Total Hours of Sleep: 5.5 Meal Information Percent Meal Consumed - Breakfast: 100 Percent Meal Consumed - Lunch: 100 Percent Meal Consumed - Dinner: 100 Subjective Subjective Patient was seen & assessed and interval progress reviewed with nursing and social work. patient feels his tremors are resolved. He has been out of room more and brighter. he rated his mood as 6-7 and inspired. Physical Exam Psychiatric Orientation: alert and oriented x 3 Apperance: appropriately dressed and appropriately groomed Eye Contact: good eye contact Motor Behavior: no abnormal motor movements Speech: normal rate/rhythm/volume of speech Affect: euthymic affect Mood: + depressed mood Thought Process: goal directed thought process Thought Content: reality based without delusions Suicidal Thoughts: denies suicidal thoughts Homicidal Thoughts: denies homicidal thoughts Hallucinations: no auditory hallucinations and no visual hallucinations Cognition: attention grossly intact and language grossly intact Estimated Intelligence: consistent with education level Judgement: + limited judgement Vital Signs (Past 24 Hours) Last Vital Signs Temp 36.6 C 10/06/22 06:49 Pulse 92 H 10/06/22 06:50 Resp 16 10/06/22 06:49 BP 114/60 10/06/22 06:50 Pulse Ox 98 10/03/22 06:00 O2 Del Method 10/03/22 06:00 O2 Flow Rate 0 09/30/22 18:24 Results & Data ([facility]) Current Inpatient Medications Current Inpatient Medications: Current Inpatient Medications Acetaminophen (Acetaminophen 325 Mg Tab) 650 mg PO Q4H PRN PRN Reason: Headache or Minor Fever Stop: 10/31/22 01:10 Al Hydrox/Mg Hydrox/Simethicone (Aluminum/Magnesium Susp 30 Ml Udc) 30 ml PO Q4H PRN PRN Reason: GI Upset Stop: 10/31/22 01:10 Bismuth Subsalicylate (Bismuth Subsalicylate Liqd 236 Ml) 15 ml PO PRN PRN PRN Reason: Loose Stool Stop: 10/31/22 01:10 Escitalopram Oxalate (Escitalopram Oxalate 10 Mg Tab) 5 mg PO QAM [facility] Stop: 11/03/22 08:59 Last Admin: 10/06/22 09:15 Dose: 5 mg Hydroxyzine HCl (Hydroxyzine Hcl 25 Mg Tab) 50 mg PO HSZ PRN PRN Reason: Insomnia Stop: 10/31/22 01:10 Hydroxyzine HCl (Hydroxyzine Hcl 25 Mg Tab) 25 mg PO Q4H PRN PRN Reason: Anxiety Stop: 10/31/22 01:10 Magnesium Hydroxide (Magnesium Hydroxide Susp 30 Ml Udc) 30 ml PO DAILY PRN PRN Reason: Constipation Stop: 10/31/22 01:10 Miscellaneous (Remove Nicoderm Patch) 1 each N/A DAILY@0859 [facility] Stop: 10/31/22 08:58 Last Admin: 10/06/22 09:15 Dose: 1 each Nicotine (Nicotine 21 Mg/24 Hr Tdsy) 21 mg TD QAM [facility] Stop: 11/03/22 08:59 Last Admin: 10/06/22 09:16 Dose: 21 mg Nicotine Polacrilex (Nicotine Polacrilex 2 Mg Gum) 1 piece MT PRN PRN PRN Reason: Nicotine Withdrawal Stop: 10/31/22 01:10 Last Admin: 10/05/22 17:47 Dose: 1 piece Sodium Chloride (Sodium Chloride 0.65% Na Soln 45 Ml ([place])) 1 - 2 sprays NA PRN PRN PRN Reason: Nasal Dryness/Congestion Stop: 10/31/22 01:10 Mental Health & Subst Abuse Tx Therapist Name of Therapist: Please see attached list of therapists. Therapy Appointment Comment: Call to schedule an appointment. Well Testing Operator Name of Well Testing Operator: None Post Discharge Appointments Primary Care Physician Name Of Family Doctor: [facility] Date of Appointment with PCP: 10/12/22 Time of Appointment with PCP: 10 AM Provider Appointment Comment: [address] [place] [address]
[2022-10-06] MEDS: NICOTINE POLACRILEX 2 MG GUM MT PRN (17:43)
[2022-10-07] MEDS: ESCITALOPRAM OXALATE 10 MG TAB PO SCH (08:59)
[2022-10-07] MEDS: NICOTINE 21 MG/24 HR TDSY TD SCH (08:59)
--- NOTE | 2022-10-07 13:42 | Psychiatric Progress Note ---
Date of Service October 07, 2022 Impression / Recommendations Mary Alice Pinedo is a 22 year old with a history of anxiety who was admitted following a suicide attempt in the context of worsening anxiety and depression driven by academic difficulties and feeling trapped by the prospect of academic failure/withdrawal. Diagnostically consistent with major depressive disorder and generalized anxiety disorder. There is a possibility of past episodes of hypomania and he has a family history of BPAD vs normal developmental late night studying sessions as no other risk taking behaviors or consequences from these periods of time. 10/07/22: future focussed Plan: continue current meds and tx plan. (1) SSRI overdose: (2) Major depressive disorder, single episode, severe with anxious distress: (3) ROMAN (generalized anxiety disorder): Inventory Assets Strengths: supportive relationships, willing to get treatment, intelligent Needs: safety and stabilization, medication adjustment, additional coping skills, increased outpatient services Suicide Risk Level Suicide Risk Level: Moderate (q15 min suicide checks) Suicide Risk Level Comments: High-Moderate due to severe depression with SI with plan prior to admission but feels safe in the hospital, able to safety contract and agrees to let nursing/staff know should they develop plan, intent or feel unable to remain safe. 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 Chief Complaint "I feel good". Review of Systems Sleep Information Total Hours of Sleep: 6.5 Meal Information Percent Meal Consumed - Breakfast: 100 Percent Meal Consumed - Lunch: 100 Percent Meal Consumed - Dinner: 100 Subjective Subjective Patient was seen & assessed and interval progress reviewed with treatment team. future focussed with regards to plan for gap year. supportive family. Physical Exam Psychiatric Orientation: alert and oriented x 3 Apperance: appropriately dressed and appropriately groomed Eye Contact: good eye contact Motor Behavior: no abnormal motor movements Speech: normal rate/rhythm/volume of speech Affect: euthymic affect Mood: no depressed mood Thought Process: goal directed thought process Thought Content: reality based without delusions Suicidal Thoughts: denies suicidal thoughts Homicidal Thoughts: denies homicidal thoughts Hallucinations: no auditory hallucinations and no visual hallucinations Cognition: attention grossly intact and language grossly intact Vital Signs (Past 24 Hours) Last Vital Signs Temp 36.6 C 10/07/22 06:45 Pulse 90 10/07/22 06:46 Resp 16 10/07/22 06:45 BP 93/58 L 10/07/22 06:46 Pulse Ox 98 10/03/22 06:00 O2 Del Method 10/03/22 06:00 O2 Flow Rate 0 09/30/22 18:24 Results & Data ([facility]) Current Inpatient Medications Current Inpatient Medications: Current Inpatient Medications Acetaminophen (Acetaminophen 325 Mg Tab) 650 mg PO Q4H PRN PRN Reason: Headache or Minor Fever Stop: 10/31/22 01:10 Al Hydrox/Mg Hydrox/Simethicone (Aluminum/Magnesium Susp 30 Ml Udc) 30 ml PO Q4H PRN PRN Reason: GI Upset Stop: 10/31/22 01:10 Bismuth Subsalicylate (Bismuth Subsalicylate Liqd 236 Ml) 15 ml PO PRN PRN PRN Reason: Loose Stool Stop: 10/31/22 01:10 Escitalopram Oxalate (Escitalopram Oxalate 10 Mg Tab) 5 mg PO QAM [facility] Stop: 11/03/22 08:59 Last Admin: 10/07/22 08:59 Dose: 5 mg Hydroxyzine HCl (Hydroxyzine Hcl 25 Mg Tab) 50 mg PO HSZ PRN PRN Reason: Insomnia Stop: 10/31/22 01:10 Hydroxyzine HCl (Hydroxyzine Hcl 25 Mg Tab) 25 mg PO Q4H PRN PRN Reason: Anxiety Stop: 10/31/22 01:10 Magnesium Hydroxide (Magnesium Hydroxide Susp 30 Ml Udc) 30 ml PO DAILY PRN PRN Reason: Constipation Stop: 10/31/22 01:10 Miscellaneous (Remove Nicoderm Patch) 1 each N/A DAILY@0859 [facility] Stop: 10/31/22 08:58 Last Admin: 10/07/22 08:59 Dose: 1 each Nicotine (Nicotine 21 Mg/24 Hr Tdsy) 21 mg TD QAM [facility] Stop: 11/03/22 08:59 Last Admin: 10/07/22 08:59 Dose: 21 mg Nicotine Polacrilex (Nicotine Polacrilex 2 Mg Gum) 1 piece MT PRN PRN PRN Reason: Nicotine Withdrawal Stop: 10/31/22 01:10 Last Admin: 10/06/22 17:43 Dose: 1 piece Sodium Chloride (Sodium Chloride 0.65% Na Soln 45 Ml ([place])) 1 - 2 sprays NA PRN PRN PRN Reason: Nasal Dryness/Congestion Stop: 10/31/22 01:10 Mental Health & Subst Abuse Tx Therapist Name of Therapist: Please see attached list of therapists. Therapy Appointment Comment: Call to schedule an appointment. Surgical Services Tech Name of Surgical Services Tech: None Post Discharge Appointments Primary Care Physician Name Of Family Doctor: [facility] Date of Appointment with PCP: 10/12/22 Time of Appointment with PCP: 10 AM Provider Appointment Comment: [id number] [place] [id number]
[2022-10-07] MEDS: NICOTINE POLACRILEX 2 MG GUM MT PRN (17:59)
[2022-10-08 06:51] VITALS: TEMP 97.9
[2022-10-08] MEDS: NICOTINE 21 MG/24 HR TDSY TD SCH (09:09)
[2022-10-08] MEDS: ESCITALOPRAM OXALATE 10 MG TAB PO SCH (09:09)
--- NOTE | 2022-10-08 09:15 | Discharge Summary ---
Date of Service October 08, 2022 History of Present Illness As per Dr. Albarran on admission: Khris presents for psychiatric admission for worsening depression, anxiety and suicide attempt via ingestion of sertraline about 20 tabs in the context of multiple psychosocial stressors including academic difficulties, burnout and social isolation. He's always been a great student and has been struggling academically for the first time and notes it's intimidating to be around some many other high achieving peers. 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 He had some sertraline that a previous girlfriend gave him a two years ago and he "kept the bottle for this occasion" in case he needed it. He then took the sertraline tabs over the course of Wednesday night into Wednesday morning as a suicide attempt and was responding to his parents calls so his mom altered emergency services requesting a wellness check. 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 He notes that since about 20 years ago he's had "this plan" of suicide as a "parachute" in case he failed or did not do well academically as a way to cope. He feels ambivalent about sruviving the attempt and "a lot of guilt" because "I couldn't even do it right" and the impact it's had on his family. He is not currently prescribed any psychiatric medications. Psychiatric ROS notable for history of going a few days with little sleep 2-3 hours, had increased energy, felt very productive, got a lot done. This lasted about 3-4 days and has occurred a few times on different occasions. No psychosis, PTSD, OCD nor eating disorder. No history of self-harm. Physical Exam Psychiatric See admission H&P and DOD assessment. Vital Signs (Past 24 Hours) Last Vital Signs Temp 36.6 C 10/08/22 06:49 Pulse 84 10/08/22 06:50 Resp 16 10/08/22 06:49 BP 101/64 10/08/22 06:50 Pulse Ox 98 10/03/22 06:00 O2 Del Method 10/03/22 06:00 O2 Flow Rate 0 09/30/22 18:24 Principal Diagnosis major depressive disorder Psychiatric Data See daily stay summary. In short, safety was maintained and the patient was cooperative with care. Medication changes included a trial of low dose Lexpapro and they tolerated this well. The patient was not prescribed the Zoloft he OD on and the effects of the OD (tremor, enlarged pupils) took a few days to resolve so the dose of Lexapro remained at 5 mg. He appeared brighter/relieved when made a decision about school. He is aware the dose of Lexapro could be increased to standard starting dose of 10 mg if symptoms do not continue to improve. A family session was held and his parents were particularly supportive of his return home. A safety plan was completed prior to discharge. Day of Discharge Assessment Today the patient voices readiness for discharge. They note improvement in mood and deny thoughts to harm self or others. Thoughts remain organized and they are improved from admission. There is no evidence of psychosis. They agree to take mediations as prescribed and keep follow-up appointments. They are stable for discharge to outpatient level of care. Transition of Care Transition Of Care Record: was reviewed with the patient Advance Directives Advance Directives Information Provided: Yes Advance Directives: No Mental Health Advance Directive: No Advance Directives on File: No Living Will: No Power of Student Counselor: No Advance Directives Reason:: Declines as Mental Health Visit. Suicide Risk Level Suicide Risk Level Comments: Suicide risk at discharge is deemed low as the patient is no longer requiring 24-hr monitoring, has a safety plan, and is free of suicidal ideation at discharge. Risk Factors Assessment Male: Yes : Yes Do You Have Access To A Gun?: No Health Problems: No Mental Health Diagnoses: Yes Substance Use Disorders: No Previous Attempt: Yes Family History of Suicide: Yes Previous Psychiatric Hospitalization: No Protective Factors Assessment Employed: Yes ([employer]) Stable Relationships: Yes Supportive Family: Yes Tobacco Cessation at Discharge Tobacco Cessation Medication Prescribed at Discharge: Offered & Pt Refused Total Time Total Time Spent: Less Than 30 Minutes Total Time Includes: Examination of the patient, Discharge Planning and Medication Reconciliation Discharge Data Lab Results 09/30/22 09/30/22 09/30/22 18:31 18:31 18:31 WBC 13.60 H RBC 4.74 Hgb 14.0 Hct 39.8 L MCV 84.0 MCH 29.5 MCHC 35.2 RDW Std Deviation 38.6 RDW Coeff of Gabriella 12.6 Plt Count 223 MPV 9.2 L Immature Gran % (Auto) 0.3 Neut % (Auto) 85.3 Lymph % (Auto) 5.9 Republic % (Auto) 8.2 Eos % (Auto) 0.0 Baso % (Auto) 0.3 Neut # (Auto) 11.61 H Lymph # (Auto) 0.80 L Republic # (Auto) 1.11 H Eos # (Auto) 0.00 Baso # (Auto) 0.04 Immature Gran # (Auto) 0.04 H Sodium 136 Potassium 4.1 Chloride 103 Carbon Dioxide 21 Anion Gap 12 H BUN 15 Creatinine 0.69 Est Cr Clr Drug Dosing Not Reportable Est GFR ( Amer) > 150.0 Est GFR (Non-Af Amer) 132.9 BUN/Creatinine Ratio 21.7 H Glucose 110 H Calcium 9.5 Total Bilirubin 2.5 H AST 16 ALT 19 Alkaline Phosphatase 58 Total Protein 7.5 Albumin 4.9 Globulin 2.6 Albumin/Globulin Ratio 1.9 Lipase 51 TSH 1.335 Urine Color Urine Appearance Urine pH Ur Specific [place] Urine Protein Urine Glucose (UA) Urine Ketones Urine Blood Urine Nitrite Urine Bilirubin Urine Urobilinogen Ur Leukocyte Esterase Urine WBC (Auto) Urine RBC (Auto) U Hyaline Cast (Auto) U Epithel Cells (Auto) Urine Bacteria (Auto) Salicylates Urine Opiates Screen Ur Methadone, Qual Acetaminophen Urine Barbiturates Ur Phencyclidine (PCP) U Amphetamin/Meth Scrn MDMA (Ecstasy) Screen U OH-Alprazolam Confrm U Benzodiazepines Scrn 7-Amino Clonazepam Ur Nordiazepam Confirm U OH-ethylflurazepam U Lorazepam Cnf GC/MS U Oxazepam Confm GC/MS Ur Temazepam Confirm U OH-Triazolam Confirm U OH-Midazolam Confirm Ur Cocaine Metabolite U Marijuana (THC) Screen Drug Screen Comment Ethyl Alcohol mg/dL SARS-CoV-2, RNA, NAAT 09/30/22 09/30/22 09/30/22 18:31 18:31 18:55 WBC RBC Hgb Hct MCV MCH MCHC RDW Std Deviation RDW Coeff of Gabriella Plt Count MPV Immature Gran % (Auto) Neut % (Auto) Lymph % (Auto) Republic % (Auto) Eos % (Auto) Baso % (Auto) Neut # (Auto) Lymph # (Auto) Republic # (Auto) Eos # (Auto) Baso # (Auto) Immature Gran # (Auto) Sodium Potassium Chloride Carbon Dioxide Anion Gap BUN Creatinine Est Cr Clr Drug Dosing Est GFR ( Amer) Est GFR (Non-Af Amer) BUN/Creatinine Ratio Glucose Calcium Total Bilirubin AST ALT Alkaline Phosphatase Total Protein Albumin Globulin Albumin/Globulin Ratio Lipase TSH Urine Color Dark Yellow Urine Appearance Clear Urine pH 6.5 Ur Specific [place] 1.034 H Urine Protein 1+ H Urine Glucose (UA) Negative Urine Ketones Trace H Urine Blood Negative Urine Nitrite Negative Urine Bilirubin Negative Urine Urobilinogen Negative Ur Leukocyte Esterase Negative Urine WBC (Auto) 1-5 Urine RBC (Auto) 0-4 U Hyaline Cast (Auto) 1-5 U Epithel Cells (Auto) 5-10 H Urine Bacteria (Auto) Negative Salicylates < 3.0 L Urine Opiates Screen Ur Methadone, Qual Acetaminophen < 3 L Urine Barbiturates Ur Phencyclidine (PCP) U Amphetamin/Meth Scrn MDMA (Ecstasy) Screen U OH-Alprazolam Confrm U Benzodiazepines Scrn 7-Amino Clonazepam Ur Nordiazepam Confirm U OH-ethylflurazepam U Lorazepam Cnf GC/MS U Oxazepam Confm GC/MS Ur Temazepam Confirm U OH-Triazolam Confirm U OH-Midazolam Confirm Ur Cocaine Metabolite U Marijuana (THC) Screen Drug Screen Comment Ethyl Alcohol mg/dL < 10.0 SARS-CoV-2, RNA, NAAT 09/30/22 09/30/22 09/30/22 18:55 18:55 Unknown WBC RBC Hgb Hct MCV MCH MCHC RDW Std Deviation RDW Coeff of Gabriella Plt Count MPV Immature Gran % (Auto) Neut % (Auto) Lymph % (Auto) Republic % (Auto) Eos % (Auto) Baso % (Auto) Neut # (Auto) Lymph # (Auto) Republic # (Auto) Eos # (Auto) Baso # (Auto) Immature Gran # (Auto) Sodium Potassium Chloride Carbon Dioxide Anion Gap BUN Creatinine Est Cr Clr Drug Dosing Est GFR ( Amer) Est GFR (Non-Af Amer) BUN/Creatinine Ratio Glucose Calcium Total Bilirubin AST ALT Alkaline Phosphatase Total Protein Albumin Globulin Albumin/Globulin Ratio Lipase TSH Urine Color Urine Appearance Urine pH Ur Specific [place] Urine Protein Urine Glucose (UA) Urine Ketones Urine Blood Urine Nitrite Urine Bilirubin Urine Urobilinogen Ur Leukocyte Esterase Urine WBC (Auto) Urine RBC (Auto) U Hyaline Cast (Auto) U Epithel Cells (Auto) Urine Bacteria (Auto) Salicylates Urine Opiates Screen Neg Ur Methadone, Qual Neg Acetaminophen Urine Barbiturates Neg Ur Phencyclidine (PCP) Neg U Amphetamin/Meth Scrn Neg MDMA (Ecstasy) Screen Neg U OH-Alprazolam Confrm NEGATIVE U Benzodiazepines Scrn Pos H 7-Amino Clonazepam NEGATIVE Ur Nordiazepam Confirm NEGATIVE U OH-ethylflurazepam NEGATIVE U Lorazepam Cnf GC/MS NEGATIVE U Oxazepam Confm GC/MS NEGATIVE Ur Temazepam Confirm NEGATIVE U OH-Triazolam Confirm NEGATIVE U OH-Midazolam Confirm NEGATIVE Ur Cocaine Metabolite Neg U Marijuana (THC) Screen Neg Drug Screen Comment SEE NOTE Ethyl Alcohol mg/dL SARS-CoV-2, RNA, NAAT NEGATIVE Hospital Course (1) SSRI overdose: (2) Major depressive disorder, single episode, severe with anxious distress: (3) ROMAN (generalized anxiety disorder): Plan 10/06/22: continue same, safety planning. 10/05/22: continue current med and tx plan, needs aftercare in [place]. 10/04/22: continue Lexapro 5 mg. 10/03/22: Risks/benefits/alternatives reviewed re: antidepressants for the jennifer tment of depression and/or anxiety. Discussion included but was not limited to FDA warnings re: suicidality in adolescents and young adults. The patient agreed to a trial of Lexapro 5 mg daily. 10/02/22: Still with tremor so will hold off on starting escitalopram until reassessed tomorrow. 10/01/22: [facility] on q15 min checks (behavioral with suicide precautions) for safety. The patient will participate in group, recreational, and milieu therapies and will be offered additional individual and family sessions as clinically appropriate. -Consider starting escitalopram 5mg tomorrow Mental Health & Subst Abuse Tx Therapist Name of Therapist: Please see attached list of therapists. Therapy Appointment Comment: Call to schedule an appointment. Floral Designer Name of Floral Designer: None Post Discharge Appointments Primary Care Physician Name Of Family Doctor: [facility] Date of Appointment with PCP: 10/12/22 Time of Appointment with PCP: 10 AM Provider Appointment Comment: [address] [place] [address] Smoking Cessation Counseling Tobacco Cessation Medication Prescribed at Discharge: Offered & Pt Refused Other #1: Name of Aftercare Appointment: [facility] - Adeline Peters Phone Number of Aftercare Appointment: [phone] Date of Aftercare Appointment: 10/09/22 Time of Aftercare Appointment: 10:45 AM Aftercare Appointment Comment: Check [employer] email for meeting link. Discharge Plan Discharge Items Patient Disposition: Home - Self-Care Reason For Visit: MDD Discharge Diagnosis: major depressive disorder Activity: Resume your previous activity Non-emergency contact: Primary Care Provider, Psychiatrist and Therapist Call non-emergency contact if: you have any medication questions and your symptoms worsen Follow-up/Referrals: [facility] [Primary Care Provider] - Diet: Regular Addtl Attending Provider Instructions: SPECIAL CARE INSTRUCTIONS: 1. Follow through with your scheduled aftercare appointments. If unable to keep an appointment, please call to reschedule. 2. Take your medication only as prescribed. Medication should not be changed or stopped without the approval of your doctor. In the event of worsening symptoms or concerns about side effects, contact your doctor immediately. 3. Utilize new healthy coping skills, anger management skills, and stress management skills learned during your hospitalization. Journal feelings and process them with a support person. Identify stressors or situations that may result in relapse, deterioration or inappropriate behaviors and develop a plan to deal with those issues. 4. If your coping skills are ineffective and you are in crisis, contact your outpatient providers for direction. If unable to reach your providers, please call the [facility] CRISIS LINE AT , go to the [facility] walk-in center at [address], [address], [place], or go to the closest Emergency Room. 5. Avoid alcohol and un-prescribed drugs. 6. You have been provided with the Mental Health Advance Directives Pamphlet for your review. 7. Your condition is stable for discharge to outpatient level of care, but recovery is an ongoing process. Ifthoughts to harm yourself or others return, follow the safety plan developed during your stay. Planning for a safe return home includes securing weapons. Our treatment team recommends weaponsbe removed from the home until your outpatient provider reassesses your progress. In rare cases where the items themselvescannot be removed, guns and ammunitionshould be secured separatelyand keys stored by a reliable personoutside of the home. If you were admitted on an involuntary commitment, the police or other legal authorities may be involved in this process. AFTERCARE APPOINTMENTS: * Please call your insurance company prior to your scheduled appointment to confirm your aftercare providers are covered. Take your insurance information to your appointments. WHO TO CALL AND WHEN: Medical Emergencies: For questions or emergencies related to your hospital stay, please contact the Inpatient Behavioral Health Unit at [phone]. A home health clinician is on-call 24/05 for the Behavioral Health Unit for emergencies At any time you feel your situation is an emergency, you may also call 911 immediately. Pending Studies at Discharge: No Stand-Alone Forms: My [facility], Smoking Cessation Medications and DC Order Prescriptions: New escitalopram oxalate [Lexapro] 5 mg tablet 5 mg PO DAILY Qty: 30 0RF Rx Instructions: replaces the 1/2 of 10 mg script Discharge Orders: Discharge Order (Routine); Ordered 10/08/22 Ordered By: Blanca Lara Admission Data Admit Date/Time: 09/30/22 23:38 Attending Provider: Blanca Lara Admit Provider: Cassy Albarran Primary Care Provider: [facility] Other Interventions: Discharge Summary Assessment (RN) Last Done: 10/08/22 11:42 PSY Interdisciplinary Discharge Planning Last Done: 10/08/22 11:49 Coding Level of Care Code 40695 D/C day mgmt > 30 min Diagnoses SSRI overdose T43.221A Major depressive disorder, single episode, severe with anxious distress F32.2 ROMAN (generalized anxiety disorder) F41.1
[2022-10-08 11:44] VITALS: BP 100/61; PULSE 83
== END 2022-10-08 12:44 | disposition home or self-care (01) | DRG 918 ==
LOC: ED 18:08 → SUATTDRO 23:38 → 3S 23:38